=== PATIENT | male | born 1940 | race Caucasian/White ===

== ENCOUNTER 2018-01-30 16:16 | Outpatient (CLI) | payer MEDICARE ==
--- NOTE | 2018-01-30 17:23 | RAD ---
CHEST TWO VIEWS: 01/30/18 COMPARISON: 08/10/17. HISTORY: Congestive heart failure. FINDINGS: Persistent cardiomegaly. Pulmonary vessels are normal. Small bilateral effusions. Hyperinflation. Chr onic changes without consolidation or mass. No pneumothorax or osseous abnormalities. IMPRESSION: 1. Cardiomegaly. 2. Small bilateral pleural effusions. POS: [facility]
== END 2018-01-30 16:17 | disposition home or self-care (01) ==
LOC: RAD-FRANK 16:16
PROVIDERS: ATTEND Nurse Practitioner Family
DX: I50.9 Heart failure, unspecified (principal); I51.7 Cardiomegaly; J90 Pleural effusion, not elsewhere classified
CPT/HCPCS: 71046

== ENCOUNTER 2019-05-29 14:45 | Outpatient (CLI) | payer MEDICARE ==
--- NOTE | 2019-05-29 15:35 | RAD ---
2 VIEW CHEST: Date: 05/29/19 HISTORY: CHF. COMPARISON: 01/30/18. FINDINGS: Mild cardiomegaly. Lung crawford appear clear. No infiltrate or vascular congestion. Osseous structures unremarkable. IMPRESSION: Cardiomegaly is stable. No acute lung process. POS: [facility]
== END 2019-05-29 14:46 | disposition home or self-care (01) ==
LOC: RAD-FRANK 14:45
PROVIDERS: ATTEND Nurse Practitioner Family
DX: I50.9 Heart failure, unspecified (principal); I51.7 Cardiomegaly
CPT/HCPCS: 71046

== ENCOUNTER 2020-05-08 00:52 | Emergency (ER) | payer MEDICARE ==
[2020-05-08] MEDS ORDERED: Meclizine HCl 25 MG TAB ONE (01:33)
[2020-05-08 01:54] LABS: Mean Corpuscular HGB CONC 32.8 g/dL (32.0-36.0); Mean Corpuscular Hemoglobin 31.7 pg (27.0-31.0); Mean Corpuscular Volume 96.6 fL (78.0-98.0); Mean Platelet Volume 7.9 fL (7.4-10.4); Platelet Count 172 thou/uL (130-400); RBC Distribution Width 13.1 % (11.5-14.5); Red Blood Cell (RBC) Count 4.12 mill/uL (4.70-6.10)
[2020-05-08 02:14] LABS: ALT (SGPT) 21 U/L (8-55); AST (SGOT) 23 U/L (5-34); Albumin 3.5 g/dL (3.4-4.8); Alkaline Phosphatase 69 U/L (40-110); Anion Gap 10 mmol/L (10-20); BUN (Urea Nitrogen) 31 mg/dL (8.4-25.7); Bilirubin, Total 0.9 mg/dL (0.2-1.2); Calc. Creatinine Clearance 0 mL/min (70-130); Calcium 8.5 mg/dL (7.8-10.44); Carbon Dioxide 25 mmol/L (23-31); Chloride 105 mmol/L (98-107); Estimated GFR-MDRD 66; Globulin 2.6 g/dL (2.4-3.5); Glucose 138 mg/dL (83-110); Potassium 4.6 mmol/L (3.5-5.1); Protein, Total 6.1 g/dL (5.8-8.1); Sodium 135 mmol/L (136-145)
[2020-05-08 02:18] LABS: Hypochromia SLIGHT = 6-15 cells (100X) (0-5/hpf); Lymphocytes 8 % (21-51); MDiff Complete? YES; Monocytes 7 % (0-10); Neutrophil 85 % (42-75); Platelet Morphology Comment Appears Adequate
[2020-05-08 02:50] LABS: Bilirubin Negative (Negative); Blood, Urine Negative (Negative); Clarity Clear (Clear); Glucose, Urine (Dipstick) Normal (Negative); Leukocyte Negative Leu/uL (Negative); Nitrite Negative (Negative); Protein, Urine (Dipstick) 10 mg/dL (Neg-Trace)
--- NOTE | 2020-05-08 07:59 | RAD ---
SINGLE VIEW OF THE CHEST: COMPARISON: 02/11/2019. HISTORY: Dizziness and fatigue. Dyspnea. FINDINGS: A single view of the chest shows an enlarged but stable cardiomediastinal silhouette. There is no ev idence of consolidation, mass, or pleural effusion. IMPRESSION: Stable cardiomegaly. POS: [facility]
--- NOTE | 2020-05-08 08:23 | CT ---
PRELIMINARY REPORT/[facility]/EMERGENCY AFTER HOURS PROCEDURE EXAM: CT Head Without Intravenous Contrast. CLINICAL HISTORY: Patient presents with approximately 1 month of generalized fatigue and dizziness TECHNIQUE: Axial computed tomography images of the head/brain without intravenous contrast. COMPARISON: None provided. FINDINGS: BRAIN: No acute intraparenchymal hemorrhage. No mass lesion. No CT evidence for acute territorial inf arct. No midline shift or extra-axial collection. There is a mild age appropriate brain atrophy with mild periventricular white matter disease. 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 VENTRICLES: No hydrocephalus. ORBITS: The orbits are unremarkable. SINUSES AND MASTOIDS: The paranasal sinuses and mastoid air cells are clear. SOFT TISSUES: No significant facial or scalp soft tissue swelling evident. No radiopaque foreign body is seen. BONES: No acute skull fracture. IMPRESSION: No acute intracranial abnormality. ELECTRONICALLY SIGNED BY: Andrae Castillo MD May 08, 2020 2:03:50 AM CDT FINAL REPORT EMERGENT AFTER HOURS CT OF THE BRAIN WITHOUT CONTRAST: FINDINGS/IMPRESSION: I agree with the findings and impression given in the preliminary report per [facility] physici an. No evidence of acute intracranial abnormality. POS: [facility]
[2020-05-09 21:27] VITALS: BP 109/70; TEMP 98.5
== END 2020-05-08 04:00 | disposition home or self-care (01) ==
LOC: ERS 00:52 → 2SW 05-09 17:05 → UNDOADMIN 05-09 17:05
DX: R42 Dizziness and giddiness (principal); R53.83 Other fatigue; I25.10 Atherosclerotic heart disease of native coronary artery without angina pectoris; I50.9 Heart failure, unspecified
CPT/HCPCS: 70450; 71045; 80053; 81003; 83880; 84484; 85025; 93005

== ENCOUNTER 2020-05-09 06:17 | Inpatient (IN) | payer MEDICARE, OTHER ==
[2020-05-09] MEDS ORDERED: Digoxin 0.5 MG/2 ML AMP ONE (06:26)
[2020-05-09] MEDS ORDERED: Norepinephrine 8 MG/0.9% NS 250 ML ONE (06:38)
[2020-05-09 06:43] LABS: #Lymphocytes 0.8 thou/uL (1.20-3.40); #Monocytes 0.9 thou/uL (0.11-0.59); #Neutrophils 5.4 thou/uL (1.40-6.50); %Basophils 0.5 % (0.0-1.0); %Eosinophils 0.6 % (0.0-10.0); %Lymphocytes 11.7 % (21.0-51.0); %Monocytes 12.6 % (0.0-10.0); %Neutrophils 74.7 % (42.0-75.0); Hemoglobin 12.1 g/dL (14.0-18.0); Mean Corpuscular HGB CONC 31.5 g/dL (32.0-36.0); Mean Corpuscular Hemoglobin 30.8 pg (27.0-31.0); Mean Corpuscular Volume 97.7 fL (78.0-98.0); Mean Platelet Volume 8.2 fL (7.4-10.4); Platelet Count 180 thou/uL (130-400); RBC Distribution Width 13.2 % (11.5-14.5); Red Blood Cell (RBC) Count 3.94 mill/uL (4.70-6.10); White Blood Cell (WBC) Count 7.2 thou/uL (4.8-10.8)
[2020-05-09] MEDS ORDERED: Norepinephrine 8 MG/0.9% NS 250 ML IVPB SCH (06:45)
[2020-05-09 07:02] LABS: ALT (SGPT) 108 U/L (8-55); AST (SGOT) 165 U/L (5-34); Albumin 3.5 g/dL (3.4-4.8); Alkaline Phosphatase 134 U/L (40-110); Anion Gap 16 mmol/L (10-20); BUN (Urea Nitrogen) 36 mg/dL (8.4-25.7); Bilirubin, Total 1.4 mg/dL (0.2-1.2); Calc. Creatinine Clearance 0 mL/min (70-130); Calcium 8.2 mg/dL (7.8-10.44); Carbon Dioxide 20 mmol/L (23-31); Chloride 106 mmol/L (98-107); Estimated GFR-MDRD 43; Globulin 2.4 g/dL (2.4-3.5); Glucose 115 mg/dL (83-110); Potassium 5.7 mmol/L (3.5-5.1); Protein, Total 5.9 g/dL (5.8-8.1); Sodium 136 mmol/L (136-145)
[2020-05-09] MEDS ORDERED: Midazolam HCl 2 mg/2 ml Vial ONE (07:28)
[2020-05-09] MEDS ORDERED: Fentanyl 100 MCG/2 ML VIAL ONE (07:28)
[2020-05-09] MEDS ORDERED: Enoxaparin Sodium 80 MG/0.8 ML SYRINGE ONE (07:34)
[2020-05-09] MEDS ORDERED: Aspirin Chewable 81 MG TAB ONE (07:34)
[2020-05-09] MEDS ORDERED: Ondansetron PF 4 MG/2 ML Vial ONE (07:42)
[2020-05-09] MEDS ORDERED: Naloxone HCl 2 mg/2 ml Syringe ONE (07:46)
[2020-05-09] MEDS ORDERED: Naloxone HCl 0.4 mg/ml Vial ONE (07:46)
[2020-05-09 07:57] LABS: INR-International Normal Ratio 1.3; PTT 36.3 sec (22.9-36.1); Prothrombin Time 15.8 sec (12.0-14.7)
--- NOTE | 2020-05-09 07:58 | RAD ---
Exam: Chest one view HISTORY:Dyspnea. Comparison: 05/08/2020 FINDINGS: Cardiac silhouette:Cardiomegaly. Aorta: Atherosclerosis of the aorta Pulmonary vessels: Normal Costophrenic angles: Clear LUNGS: Parenchymal changes are felt to be chronic. No masses or consolidation. Pneumothorax: None Osseous abnormalities: None IMPRESSION: 1. Cardiomegaly, without evidence of congestive heart failure. 2. Atherosclerosis.
[2020-05-09] MEDS ORDERED: Vancomycin 1 GM/200 ML BAG ONE (08:27)
[2020-05-09] MEDS ORDERED: Cefepime 2 GM VIAL ONE (08:27)
[2020-05-09] MEDS ORDERED: Dextrose 50% Abboject 50 ML SYRINGE SLOW IVP ONE (08:37)
[2020-05-09] MEDS ORDERED: Insulin Regular 300 UNITS/3 ML VIAL IVP SCH (08:45)
[2020-05-09 08:59] LABS: Bilirubin Negative (Negative); Blood, Urine 2+ (Negative); Clarity Turbid (Clear); Glucose, Urine (Dipstick) Normal (Negative); Leukocyte 25 Leu/uL (Negative); Nitrite Negative (Negative); Protein, Urine (Dipstick) 50 mg/dL (Neg-Trace); RBC/HPF Greater than 50 HPF (0-3); Squamous Epithelial 0-3 HPF (0-3); Urobilinogen Normal mg/dL (Less than 2)
--- NOTE | 2020-05-09 09:11 | CT ---
BRAIN CT WITHOUT IV CONTRAST: HISTORY: Dizziness. COMPARISON: 05/08/2020. FINDINGS: No mass or midline shift. No intra- or extraaxial hemorrhage. Sinuses and mastoids are clear of acu te process. IMPRESSION: Stable exam. Unchanged from exam, yesterday, 05/08/2020. POS: [facility]
[2020-05-09 09:14] LABS: Bacteria/HPF None Seen HPF (None Seen); Renal Epithelial 0-3 HPF (None Seen); Transitional Epithelial 0-3 HPF (None Seen); Yeast-Budding None Seen HPF (None Seen)
[2020-05-09 10:02] LABS: Troponin I 0.752 ng/mL (< 0.028)
--- NOTE | 2020-05-09 12:13 | HP ---
PRIMARY CARE PROVIDER: Bethany Gupta. CHIEF COMPLAINT: Lightheadedness. HISTORY OF PRESENT ILLNESS: Mr. Handy is a pleasant 79-year-old gentleman, who was seen at [facility] on May 09, 2020. The patient was seen in the emergency room yesterday for lightheadedness. He was insistent that he was fine and there was nothing wrong. He received meclizine and was discharged home. Today morning, he was found to be hypotensive and tachycardic with rapid atrial fibrillation. He received fluids with improvement of blood pressure and heart rate. Please note, the patient is currently lethargic, unable to provide any history. History was obtained from discussion with emergency room physician and review of medical records. I tried contacting his , but the phone number was not working. In the emergency room today, he was found to be in atrial fibrillation with rapid ventricular response. He was initially treated with norepinephrine because of hypotension. He also received digoxin. He continued to be hypotensive. Following discussion with car chaser on-call, emergency room physician electrically cardioverted the patient with conversion to sinus rhythm. He received fentanyl for the cardioversion and needed Narcan to reverse fentanyl. He was lethargic following cardioversion, and therefore, CT scan of the brain has been ordered to rule out stroke. REVIEW OF SYSTEMS: Could not be completed secondary to the patient's lethargic status. PAST MEDICAL HISTORY: Congestive heart failure, coronary artery disease, and left ventricular ejection fraction 15% to 20% in December 2016. PAST SURGICAL HISTORY: None. SOCIAL HISTORY: No history of tobacco use, alcohol use or recreational drug use. FAMILY HISTORY: Could not obtain. ALLERGIES: NO KNOWN DRUG ALLERGIES. CURRENT MEDICATIONS: 1. Meclizine 50 mg every 8 hours as needed. 2. Lasix. 3. Aspirin. 4. Atorvastatin 40 mg daily. 5. Coreg 12.5 mg 2 times a day. 6. Furosemide 40 mg daily. 7. Lisinopril 5 mg daily. PHYSICAL EXAMINATION: GENERAL: On examination, Mr. Handy is lethargic. VITAL SIGNS: Blood pressure 107/72, pulse 87, respiratory rate 20, and oxygen saturation 100% on room air. He is afebrile. EYES: No scleral icterus, no conjunctival pallor. ENT: Moist mucosal membranes. No oropharyngeal erythema or exudates. NECK: Supple, nontender, trachea is midline. RESPIRATORY: Accessory muscles of breathing are not active. Chest wall movements are symmetric bilaterally. He has a few bibasilar crackles. CARDIOVASCULAR: S1 and S2 are heard, regular. Peripheral pulses palpable. ABDOMEN: Soft, nontender, bowel sounds are heard. NEUROLOGIC: Full neurologic examination was not possible secondary to the patient's noncooperation. No facial droop. Pupils equal and reactive to light. Deep tendon reflexes 2+, plantars downgoing bilaterally. MUSCULOSKELETAL: The patient is moving all 4 extremities. SKIN: No rashes. PSYCHIATRIC: Unable to assess mood, affect, or orientation to person, place or time. LABORATORY DATA: Mr. Handy's labs and investigations were reviewed. I reviewed his electrocardiogram, which at 0622 hours today shows atrial fibrillation with rapid ventricular response. Post cardioversion electrocardiogram done at 0753 hours shows normal sinus rhythm, left bundle-branch block. Chest x-ray does not show any pulmonary infiltrates. He has cardiomegaly by my review. Noncontrast CT scan of the brain did not show any acute intracranial processes. He has normal white count, normocytic anemia with hemoglobin of 12.1, normal platelet count, INR 1.3, normal sodium, elevated potassium of 5.7, elevated blood urea nitrogen of 36, elevated creatinine of 1.56, creatinine was 1.08 yesterday, elevated total bilirubin of 1.4, elevated AST of 165, elevated ALT of 108, elevated alkaline phosphatase of 134, elevated troponin I of 0.428, and elevated BNP of 1598. Urinalysis is negative for nitrite and positive for leukocyte esterase. ASSESSMENT AND PLAN: Mr. Handy is a pleasant 79-year-old gentleman, who was seen at [facility] on May 09, 2020. His problem list includes: 1. Atrial fibrillation with rapid ventricular response: Mr. Handy presented with atrial fibrillation with rapid ventricular response. He was hemodynamically stable and was electrically cardioverted. He will be admitted to the hospital for further management. 2. Elevated troponin: Could be secondary to atrial fibrillation with rapid ventricular response. We will trend troponins. We will monitor on telemetry. Cardiology Service has been consulted by emergency room physician, we will follow input. 3. Hyperkalemia: We will provide insulin followed by D50, we will recheck potassium level. 4. Abnormal LFTs: Most likely secondary to hepatic congestion from congestive heart failure, we will trend LFTs. We will check abdominal ultrasound if LFTs do not improve. 5. The patient has been started on cefepime and vancomycin because of concern over sepsis as the source of hypotension. I will continue these for now and discontinue depending on the cultures. Many thanks for allowing me to participate in your patient's care. Please feel free to contact me with any questions or concerns. LEVEL OF RISK: High. LEVEL OF COMPLEXITY: High. Job ID: [id number]
[2020-05-09 15:13] LABS: Anion Gap 16 mmol/L (10-20); BUN (Urea Nitrogen) 41 mg/dL (8.4-25.7); Calc. Creatinine Clearance 0 mL/min (70-130); Calcium 7.7 mg/dL (7.8-10.44); Carbon Dioxide 14 mmol/L (23-31); Chloride 109 mmol/L (98-107); Estimated GFR-MDRD 41; Glucose 127 mg/dL (83-110); Potassium 5.6 mmol/L (3.5-5.1); Sodium 133 mmol/L (136-145)
[2020-05-09 15:18] LABS: Troponin I 5.989 ng/mL (< 0.028)
[2020-05-09] MEDS: Cefepime 2 GM in Sodium Chloride 0.9% 100 ML IVPB SCH (20:58)
[2020-05-10 05:17] VITALS: BMI 22.4
[2020-05-10 06:08] LABS: #Eosinphils 0.1 thou/uL (0.0-0.7); #Lymphocytes 1.1 thou/uL (1.20-3.40); #Monocytes 0.7 thou/uL (0.11-0.59); #Neutrophils 3.8 thou/uL (1.40-6.50); %Basophils 0.6 % (0.0-1.0); %Eosinophils 2.2 % (0.0-10.0); %Lymphocytes 18.3 % (21.0-51.0); %Monocytes 12.6 % (0.0-10.0); %Neutrophils 66.3 % (42.0-75.0); Hemoglobin 11.9 g/dL (14.0-18.0); Mean Corpuscular Hemoglobin 30.2 pg (27.0-31.0); Mean Corpuscular Volume 97.5 fL (78.0-98.0); Platelet Count 187 thou/uL (130-400); RBC Distribution Width 13.3 % (11.5-14.5); Red Blood Cell (RBC) Count 3.94 mill/uL (4.70-6.10); White Blood Cell (WBC) Count 5.7 thou/uL (4.8-10.8)
[2020-05-10 06:34] LABS: ALT (SGPT) 89 U/L (8-55); AST (SGOT) 106 U/L (5-34); Alkaline Phosphatase 101 U/L (40-110); Anion Gap 13 mmol/L (10-20); BUN (Urea Nitrogen) 44 mg/dL (8.4-25.7); Calc. Creatinine Clearance 47 mL/min (70-130); Calcium 7.6 mg/dL (7.8-10.44); Carbon Dioxide 16 mmol/L (23-31); Chloride 110 mmol/L (98-107); Estimated GFR-MDRD 52; Glucose 99 mg/dL (83-110); Potassium 4.9 mmol/L (3.5-5.1); Sodium 134 mmol/L (136-145)
[2020-05-10 06:46] LABS: Critical Call Chem Troponin I RESULT DECREASING
[2020-05-10] MEDS: Enoxaparin Sodium 40 MG/0.4 ML SYRINGE SC SCH (08:14)
[2020-05-10] MEDS: Cefepime 2 GM in Sodium Chloride 0.9% 100 ML IVPB SCH ×2 (08:14→21:26)
[2020-05-10] MEDS: Vancomycin HCl 1.25 GM in Sodium Chloride 0.9% 250 ML 250 ML IVPB SCH (08:45)
[2020-05-10] MEDS ORDERED: Prevnar 13-Val Conj/PF 0.5 ML SYRINGE IM ONE (09:00)
[2020-05-10] MEDS ORDERED: Nitroglycerin 0.4 MG TAB (25 Tab Bottle) SL PRN (10:41)
[2020-05-10 12:24] LABS: SARS-CoV-2 MS2 Positive; SARS-CoV-2 N Gene Negative; SARS-CoV-2 S Gene Negative; SARS-CoV-2 orf1ab Negative
[2020-05-10] MEDS: Carvedilol 6.25 MG TAB PO SCH (17:09)
--- NOTE | 2020-05-10 18:17 | PDOC.HOSPP ---
- Subjective Encounter Date: 05/10/20 Encounter Time: 18:16 Subjective: Pt seen for followup re: afib with RVR. Feels better now, denies chest pain. Denies cough or fevers. - Objective Vital Signs & Weight: Vital Signs (12 hours) Temp Pulse Resp BP Pulse Ox 05/10/20 17:56 97.4 F L 83 16 107/66 95 05/10/20 15:25 97.8 F 92 18 108/65 100 05/10/20 12:10 97.8 F 90 16 107/66 98 05/10/20 08:50 98.1 F 79 16 105/65 100 Weight Weight 159 lb 14.4 oz I&O: 05/09/20 05/10/20 05/11/20 06:59 06:59 06:59 Output Total 400 Balance -400 Result Diagrams: 05/10/20 06:02 05/10/20 06:02 Additional Labs: Labs and MARs reviewed by me EKG Reviewed by me: Yes (Tele: NSR) Hospitalist ROS - Review of Systems Respiratory: denies: cough, shortness of breath, SOB with excertion, pleuritic pain, wheezing Cardiovascular: denies: chest pain, palpitations, orthopnea, paroxysmal noc. dyspnea, edema, light headedness Gastrointestinal: denies: nausea, vomiting, abdominal pain, diarrhea, constipation, melena, hematochezia - Medication Medications: Active Medications Generic Name Dose Route Start Last Admin Trade Name Freq PRN Reason Stop Dose Admin Carvedilol 12.5 mg 05/10/20 17:00 05/10/20 17:09 Coreg PO 12.5 mg BID- MAUREEN Administration Enoxaparin Sodium 40 mg 05/10/20 09:00 05/10/20 08:14 Lovenox SC 40 mg 0900 MAUREEN Administration Vancomycin HCl 1.25 gm/ Sodium 250 mls @ 166.667 mls/hr 05/10/20 09:00 08:45 Chloride IVPB 250 mls 0900 MAUREEN Administration Cefepime HCl 2 gm/ Sodium 100 mls @ 200 mls/hr 05/09/20 20:00 05/10/20 08:14 Chloride IVPB 100 mls 0800,2000 MAUREEN Administration Sodium Chloride 10 ml 05/09/20 09:00 06/14/20 08:15 Flush - Normal Saline IVF 10 ml Q12HR MAUREEN Administration - Exam General Appearance: awake alert Eye: anicteric sclera ENT: moist mucosa Neck: supple, symmetric Heart: RRR, no rubs Respiratory: CTAB, no rales Gastrointestinal: soft, non-tender Skin: no rashes Musculoskeletal: no muscle wasting Psychiatric: normal affect, normal behavior Hosp A/P (1) Atrial fibrillation with RVR Code(s): I48.91 - UNSPECIFIED ATRIAL FIBRILLATION Status: Acute (2) Elevated troponin Code(s): R79.89 - OTHER SPECIFIED ABNORMAL FINDINGS OF BLOOD CHEMISTRY Status : Acute (3) Sepsis Code(s): A41.9 - SEPSIS, UNSPECIFIED ORGANISM Status: Acute (4) Chronic systolic CHF (congestive heart failure) Code(s): I50.22 - CHRONIC SYSTOLIC (CONGESTIVE) HEART FAILURE Status: Chronic - Plan s/p electrical cardioversion. Elevated troponin could be secondary to electrical cardioversion and afib with RVR. Pt denies chest pain at this time. 2D echo/cardiology consults pending. COVID-19 ruled out. Blood and urine cultures negative so far. Pt on empiric antibiotics (IV cefepime/vancomycin).
[2020-05-10] MEDS: Atorvastatin Calcium 40 MG TAB PO SCH (20:10)
[2020-05-11 04:22] LABS: ALT (SGPT) 81 U/L (8-55); AST (SGOT) 81 U/L (5-34); Albumin 2.8 g/dL (3.4-4.8); Alkaline Phosphatase 85 U/L (40-110); Anion Gap 13 mmol/L (10-20); BUN (Urea Nitrogen) 40 mg/dL (8.4-25.7); Bilirubin, Total 0.9 mg/dL (0.2-1.2); Calc. Creatinine Clearance 56 mL/min (70-130); Calcium 7.8 mg/dL (7.8-10.44); Carbon Dioxide 17 mmol/L (23-31); Chloride 109 mmol/L (98-107); Estimated GFR-MDRD 63; Globulin 2.3 g/dL (2.4-3.5); Glucose 91 mg/dL (83-110); Potassium 4.5 mmol/L (3.5-5.1); Protein, Total 5.1 g/dL (5.8-8.1); Sodium 134 mmol/L (136-145)
[2020-05-11 08:46] LABS: Vancomycin, Trough 8.6 ug/mL
[2020-05-11] MEDS: Carvedilol 6.25 MG TAB PO SCH ×2 (09:04→17:20)
[2020-05-11] MEDS: Lisinopril 5 MG TAB PO SCH (09:05)
[2020-05-11] MEDS: Furosemide 40 MG TAB PO SCH (09:06)
[2020-05-11] MEDS: Aspirin Chewable 81 MG TAB PO SCH (09:06)
[2020-05-11] MEDS: Enoxaparin Sodium 40 MG/0.4 ML SYRINGE SC SCH (09:07)
[2020-05-11] MEDS: Cefepime 2 GM in Sodium Chloride 0.9% 100 ML IVPB SCH ×2 (09:08→20:56)
[2020-05-11] MEDS: Vancomycin HCl 1.25 GM in Sodium Chloride 0.9% 250 ML 250 ML IVPB SCH (09:57)
[2020-05-11] MEDS ORDERED: Amiodarone 200 MG TAB PO SCH (11:45)
--- NOTE | 2020-05-11 17:30 | CON ---
DATE OF CONSULTATION: HISTORY OF PRESENT ILLNESS: Solitario Handy is a 79-year-old white male who was evaluated by Dr. Triana in December 2016. He had worsening shortness of breath and went to the emergency room in [place], but he would not stay and went home. He came back the next day with increased difficulty breathing. He was given furosemide, had improvement in his symptoms. Echocardiogram revealed an ejection fraction of 15 % to 20% with moderate to severe mitral regurgitation and very dilated left ventricle. He also had left bundle branch block. He underwent cardiac catheterization, which revealed ejection fraction of 20% with global hypokinesis. There was a 10% left main, 10% mid LAD, 60% ostial circumflex, and 20% distal right coronary artery stenosis. It was felt that he had a nonischemic cardiomyopathy. He was placed on carvedilol, lisinopril, and furosemide. He never did return for followup. It was the feeling that during that admission that he ultimately would probably need a biventricular ICD. He presented to the ER on May 08, 2020, complaining of lightheadedness, and he was urged to stay, but he wished to leave and was placed on meclizine. He then again called EMS, and they called for helicopter transport. He was complaining of lightheadedness and weakness and mild shortness of breath, but denied any chest discomfort. The patient states that his pressure was in the 50s when they arrived and he was in atrial fibrillation with fast ventricular response. He denied any chest discomfort during any of this. In the emergency room, he was given digoxin 0.25 IV. However, he continued to remain hypotensive with blood pressure as low as 81/67. Norepinephrine was started for his hypotension, and he was given baby aspirin. He continued to have fast ventricular response. The decision was made to have him undergo cardioversion. He was given fentanyl 100 mcg and midazolam 2 mg and then underwent electrical cardioversion. From review of the ER records, I am not certain how much energy was used. He then converted to sinus rhythm, but was very slow to awaken, and he was given Narcan. This followed by head CT because he continued to remain very drowsy, and the head CT was unremarkable. Today, he is sitting in the chair, alert, oriented, and states that he does have problems with exertional dyspnea if he tries to do something strenuous. He denies any PND. He does have some swelling of his left ankle after he dropped a frozen pig on it. He continues to deny ever having any chest discomfort. PAST MEDICAL HISTORY: Nonischemic cardiomyopathy, mild coronary artery disease , and hypercholesterolemia. PAST SURGICAL HISTORY: Tonsillectomy. MEDICATIONS: 1. Meclizine p.r.n. 2. Aspirin 81 daily. 3. Atorvastatin 40 at bedtime. 4. Carvedilol 12.5 mg b.i.d. 5. Furosemide 40 q.a.m. 6. Lisinopril 5 mg daily. 7. Nitroglycerin 0.4 mg p.r.n. ALLERGIES: NONE. FAMILY HISTORY: Brother had a coronary stent placed. SOCIAL HISTORY: He states he never smoked nor drank. 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 REVIEW OF SYSTEMS: A 10-point review of systems was unremarkable. PHYSICAL EXAMINATION: VITAL SIGNS: Blood pressure 119/73, pulse of 73, sinus rhythm on the monitor. HEENT: PERRL. NECK: Supple. CHEST: Clear. CARDIAC: S1 and S2 normal without any S3, S4, or murmurs. Carotid upstrokes normal without bruits. ABDOMEN: Normal bowel sounds without tenderness or organomegaly. EXTREMITIES: Revealed 2+ pretibial edema on the left. No edema on the right. NEUROLOGIC: Grossly intact. SKIN: Warm and dry. LABORATORY DATA: EKG on admission reveals atrial fibrillation with fast ventricular response of 143 per minute with left bundle branch block. His left bundle branch block is old. Troponin I is up to 5.989. Sodium 134, potassium 4.5, chloride 109, carbon dioxide 17, BUN 40, and creatinine 1.12. AST 81 and ALT 81. BNP 2144 and 1598.1. Hemoglobin 11.9, hematocrit 38.4, white count 5700, platelets 187,000. COVID-19 swab is negative. Echocardiogram revealed the left ventricle is severely increased in size, severe left ventricular dysfunction with ejection fraction of 10% to 15%, evidence for diastolic dysfunction, left atrial enlargement, severe mitral regurgitation, severe tricuspid regurgitation, trivial aortic insufficiency. IMPRESSION: 1. Acute on chronic systolic and diastolic heart failure with ejection fraction of 10% to 15%. 2. Presenting with atrial fibrillation with fast ventricular response. He was hemodynamically unstable with hypotension and underwent electrical cardioversion in the emergency room. 3. Episode of nonsustained ventricular tachycardia on the monitor. 4. Left bundle branch block. 5. Mild coronary artery disease on catheterization 3 years ago. 6. Hypertension. 7. Hypercholesterolemia. 8. Positive family history. 9. NSTEMI, probably type 2 from atrial fibrillation and electrical cardioversion. PLAN: The patient will be loaded with amiodarone for suppression of atrial fibrillation going forward. He also will need to be on anticoagulation for stroke prophylaxis. His CHADS-VASc score is greater than 2. Also, Electrophysiology will be consulted for biventricular ICD, which is what he really needs, especially with finding of nonsustained ventricular tachycardia since he has been here. We will follow the patient with you. Job ID: [id number] MTDD
--- NOTE | 2020-05-11 18:27 | PDOC.HOSPP ---
- Subjective Encounter Date: 05/11/20 Encounter Time: 07:40 Subjective: Pt seen for followup re: NSVT. Feels better today. - Objective Vital Signs & Weight: Vital Signs (12 hours) Temp Pulse Resp BP BP BP Pulse Ox 05/11/20 17:20 105/65 05/11/20 12:00 97.3 F L 67 18 105/60 05/11/20 09:05 76 119/73 05/11/20 09:04 119/73 05/11/20 08:00 98 05/11/20 07:45 96.3 F L 76 18 119/73 98 Weight Admit Weight 158 lb 14.4 oz Weight 160 lb 3.2 oz I&O: 05/10/20 05/11/20 05/12/20 06:59 06:59 06:59 Intake Total 700 Output Total 400 Balance -400 700 Result Diagrams: 05/10/20 06:02 05/11/20 03:24 Additional Labs: Labs and MARs reviewed by me EKG Reviewed by me: Yes (Tele: NSVT) Hospitalist ROS - Review of Systems Respiratory: reports: SOB with excertion. denies: cough, shortness of breath, pleuritic pain, wheezing Cardiovascular: denies: chest pain, palpitations, orthopnea, paroxysmal noc. dyspnea, edema, light headedness Gastrointestinal: denies: nausea, vomiting, abdominal pain, diarrhea, constipation, melena, hematochezia - Medication Medications: Active Medications Generic Name Dose Route Start Last Admin Trade Name Freq PRN Reason Stop Dose Admin Aspirin 81 mg 05/11/20 09:00 05/11/20 09:06 Aspirin Chewable PO 81 mg DAILY MAUREEN Administration Atorvastatin Calcium 40 mg 05/10/20 21:00 05/10/20 20:10 Lipitor PO 40 mg HS MAUREEN Administration Carvedilol 12.5 mg 05/10/20 17:00 05/11/20 17:20 Coreg PO 12.5 mg BID-WM MAUREEN Administration Enoxaparin Sodium 40 mg 05/10/20 09:00 05/11/20 09:07 Lovenox SC 40 mg 0900 MAUREEN Administration Furosemide 40 mg 05/11/20 09:00 05/11/20 09:06 Lasix PO 40 mg DAILY MAUREEN Administration Cefepime HCl 2 gm/ Sodium 100 mls @ 200 mls/hr 05/09/20 20:00 05/11/20 09:08 Chloride IVPB 100 mls 799,1999 MAUREEN Administration Lisinopril 5 mg 05/11/20 09:00 05/11/20 09:05 Zestril PO 5 mg DAILY MAUREEN Administration Sodium Chloride 10 ml 05/09/20 09:00 05/11/20 09:10 Flush - Normal Saline IVF 10 ml Q12HR MAUREEN Administration - Exam General Appearance: awake alert Eye: anicteric sclera ENT: normocephalic atraumatic Neck: supple, no thyromegaly Heart: RRR Respiratory: normal chest expansion, rales Gastrointestinal: soft, non-tender Extremities: 2+ LE edema Extremities - other findings: Worse on left side Musculoskeletal: no muscle wasting Psychiatric: normal affect, normal behavior Hosp A/P (1) NSVT (nonsustained ventricular tachycardia) Code(s): I47.2 - VENTRICULAR TACHYCARDIA Status: Acute (2) Elevated troponin Code(s): R79.89 - OTHER SPECIFIED ABNORMAL FINDINGS OF BLOOD CHEMISTRY Status : Acute (3) Chronic systolic CHF (congestive heart failure) Code(s): I50.22 - CHRONIC SYSTOLIC (CONGESTIVE) HEART FAILURE Status: Chronic (4) Atrial fibrillation with RVR Code(s): I48.91 - UNSPECIFIED ATRIAL FIBRILLATION Status: Resolved (5) Sepsis Code(s): A41.9 - SEPSIS, UNSPECIFIED ORGANISM Status: Resolved - Plan Consult EP for NSVT/a. fib. s/p electrical cardioversion for a fib, now in NSR. Troponin trending down. COVID-19 ruled out. Blood and urine cultures negative so far, follow cultures. Pt on IV cefepime/vancomycin.
--- NOTE | 2020-05-11 19:49 | CON ---
DATE OF CONSULTATION: 05/11/2020 REASON FOR CONSULTATION: Consideration of biventricular ICD. HISTORY OF PRESENT ILLNESS: Mr. Handy is a 79-year-old gentleman, who presented to the emergency room for lightheadedness. He was found to be hypotensive and tachycardic and atrial fibrillation with RVR. He did receive some bolus of IV fluids and digoxin. He continued to be hypotensive and minimally responsive to the digoxin. He was placed on a norepinephrine drip and eventually underwent external cardioversion in the ER to restore sinus rhythm. He has a history of ischemic cardiomyopathy, coronary artery disease, left bundle-branch block, and congestive heart failure. His documentation shows LVEF 15% to 20% in December of 2016. He is not followed with Cardiology regularly since that time. That being said, his home medication list does include guideline directed medication therapy with beta-ann and LUZ MARIA inhibitor. He denies any prior history of atrial fibrillation. Mr. Handy currently feels well. He denies any heart racing, palpitations, chest pain, pressure, syncope, near syncope, stroke, or stroke-like symptoms. REVIEW OF SYSTEMS: A 12-point review of systems is negative except that listed above in the HPI. PAST MEDICAL HISTORY: 1. Ischemic cardiomyopathy, congestive systolic heart failure, LVEF 15% to 20% in December 2016. 2. Coronary artery disease. 3. Left bundle-branch block by a 12-lead EKG in 2016. SOCIAL HISTORY: Denies alcohol, tobacco, or illicit drug use. 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 FAMILY HISTORY: Denies sudden cardiac or early-onset CAD. ALLERGIES: NO KNOWN DRUG ALLERGIES. MEDICATIONS: 1. Furosemide 40 mg daily. 2. Aspirin 81 mg daily. 3. Lisinopril 5 mg daily. 4. Carvedilol 12.5 mg b.i.d. 5. Lipitor 40 mg at bedtime. PHYSICAL EXAMINATION: VITAL SIGNS: Temperature 97.3, pulse 67, blood pressure is 105/60, respirations 18, and oxygen is 98% on room air. GENERAL: The patient is alert and oriented. Speech is clear. Affect is appropriate. He is in no apparent distress at the time of the exam. HEENT: Normocephalic and atraumatic. Sclerae are anicteric. EOMs are intact. Oral mucosa is moist and pink with fair dentition. SKIN: , but no obvious lesions are seen. NECK: Supple without jugular venous distention. HEART: His heart rate is irregularly irregular with crisp S1 and S2. PMI is nondisplaced. LUNGS: Clear to auscultation bilaterally without wheezes, crackles, or rhonchi. Respirations are even and unlabored with good bilateral excursion. ABDOMEN: Soft and nontender without palpable masses. EXTREMITIES: Warm and dry to touch. Well perfused without clubbing or cyanosis. Lower extremities do exhibit 1+ edema extending to the low tibia. DATABASE: Telemetry and EKGs now show sinus rhythm with an underlying left bundle-branch block. QRS is 204 milliseconds. Initial EKG showed atrial flutter with RVR, likely atypical. Ventricular rate 143 beats per minute. P-wave activity is difficult to see with the underlying significant left bundle-branch block in the initial EKG. He has maintained sinus rhythm since being converted in the emergency room. He has had runs of wide-complex tachycardia at 8 beats in duration proceeded by P-wave. There have been multiple instances nonsustained with a slight compensatory pause less than 2 seconds upon termination. LABORATORY DATA: Potassium on 05/09/2020 is 5.6, creatinine 1.65. Troponins were elevated, peaked at 5.989 and trending down. Magnesium was not checked. BNP 1598. DIAGNOSTIC STUDIES: Echocardiogram on 05/11, shows ejection fraction of 10% to 15%. Left atrium is moderately dilated. Severe MR is seen. IMPRESSION: 1. Acute on chronic congestive heart failure with nonischemic cardiomyopathy, NYHA functional class III status. 2. Left bundle-branch block, approximately 200 milliseconds in duration at least since 2016. 3. Wide-complex tachycardia. 4. Severely reduced ejection fraction of approximately 15%, initially diagnosed in February 2017 despite beta-ann and LUZ MARIA inhibitor therapy. 5. Atrial flutter with rapid ventricular response. PLAN AND RECOMMENDATIONS: I had a discussion with Mr. Handy today regarding the potential benefit from a biventricular ICD. First, we discussed the intent of an ICD and his prevention of sudden cardiac . He is in agreement with this, and then, we also discussed the potential benefit from biventricular pacing due to his significant left bundle-branch block and congestive heart failure symptoms. We will begin scheduling a biventricular ICD implant with a [employer] device in the near future. Anticipate this will be placed prior to discharge. We discussed the risks, benefits, and alternatives. The patient voices understanding and fully wishes to proceed with ICD implant. At this point, the persistence and burden of his atrial flutter are unknown. On his echocardiogram, it does note that his left atrium is moderately dilated. Long-term, we can monitor this through his ICD and could also consider initiation of ATP therapies once device has settled in place. We will continue to monitor and we will discuss anticoagulation with him. His CHADS-VASc score is at least 3 with his age and heart failure. Thank you for allowing me to participate in the care of this patient. Job ID: [id number]
[2020-05-11] MEDS: Atorvastatin Calcium 40 MG TAB PO SCH (20:56)
[2020-05-11] MEDS: Amiodarone 200 MG TAB PO SCH (20:56)
[2020-05-11] MEDS: Vancomycin HCl 750 MG in Sodium Chloride 0.9% 250 ML 250 ML IVPB SCH (21:35)
[2020-05-12 04:33] LABS: ALT (SGPT) 75 U/L (8-55); AST (SGOT) 61 U/L (5-34); Albumin 2.9 g/dL (3.4-4.8); Alkaline Phosphatase 79 U/L (40-110); Anion Gap 10 mmol/L (10-20); BUN (Urea Nitrogen) 38 mg/dL (8.4-25.7); Bilirubin, Total 0.8 mg/dL (0.2-1.2); Calc. Creatinine Clearance 53 mL/min (70-130); Calcium 8.1 mg/dL (7.8-10.44); Carbon Dioxide 20 mmol/L (23-31); Cardiac Risk 3.3 (Less than 4.5); Chloride 107 mmol/L (98-107); Cholesterol 93 mg/dl (< 200 Desired); Estimated GFR-MDRD 60; Globulin 2.2 g/dL (2.4-3.5); Glucose 130 mg/dL (83-110); HDL Cholesterol 28 mg/dL (>60 Neg Risk); LDL Cholesterol, Calculated 55 mg/dL; Protein, Total 5.1 g/dL (5.8-8.1); Sodium 133 mmol/L (136-145); Triglycerides 51 mg/dL (Less than 150)
[2020-05-12] MEDS: Carvedilol 6.25 MG TAB PO SCH ×2 (07:24→16:13)
[2020-05-12] MEDS: Cefepime 2 GM in Sodium Chloride 0.9% 100 ML IVPB SCH ×2 (07:25→19:49)
[2020-05-12] MEDS: Lisinopril 5 MG TAB PO SCH (08:06)
[2020-05-12] MEDS: Vancomycin HCl 750 MG in Sodium Chloride 0.9% 250 ML 250 ML IVPB SCH ×2 (08:07→22:35)
[2020-05-12] MEDS: Furosemide 40 MG TAB PO SCH (08:07)
[2020-05-12] MEDS: Amiodarone 200 MG TAB PO SCH ×2 (08:07→19:49)
[2020-05-12] MEDS: Aspirin Chewable 81 MG TAB PO SCH (08:07)
[2020-05-12] MEDS: Enoxaparin Sodium 40 MG/0.4 ML SYRINGE SC SCH (08:07)
--- NOTE | 2020-05-12 10:11 | PDOC.EP ---
- Subjective Date: 05/12/20 Time: 08:00 Interval History: feels well this morning. He is breathing easy. He is not having any heart racing, palpitations, chest pain, syncope, stroke or stroke-like symptoms. He voices no cardiac concerns or complaints this morning - Objective Allergies/Adverse Reactions: Allergies Allergy/AdvReac Type Severity Reaction Status Date / Time No Known Allergies Allergy Verified 05/09/20 19:14 Current Medications Amiodarone HCl (Cordarone) 400 mg PO BID [facility] Last Admin: 05/12/20 08:07 Dose: 400 mg Aspirin (Aspirin Chewable) 81 mg PO DAILY [facility] Last Admin: 05/12/20 08:07 Dose: 81 mg Atorvastatin Calcium (Lipitor) 40 mg PO HS [facility] Last Admin: 05/11/20 20:56 Dose: 40 mg Carvedilol (Coreg) 12.5 mg PO BID-[facility] Last Admin: 05/12/20 07:24 Dose: 12.5 mg Enoxaparin Sodium (Lovenox) 40 mg SC 0900 [facility] Last Admin: 05/12/20 08:07 Dose: 40 mg Furosemide (Lasix) 40 mg PO DAILY [facility] Last Admin: 05/12/20 08:07 Dose: 40 mg Cefepime HCl 2 gm/ Sodium (Chloride) 100 mls @ 200 mls/hr IVPB 0800,2000 [facility] Last Admin: 05/12/20 07:25 Dose: 100 mls Vancomycin HCl 750 mg/ Sodium (Chloride) 250 mls @ 250 mls/hr IVPB 0900,2100 [facility] Last Admin: 05/12/20 08:07 Dose: 250 mls Lisinopril (Zestril) 5 mg PO DAILY [facility] Last Admin: 05/12/20 08:06 Dose: 5 mg Miscellaneous Medication (Pharmacy To Dose) 1 each IVPB PRN PRN PRN Reason: Pharmacy to dose Nitroglycerin (Nitrostat) 0.4 mg SL Q5MIN PRN PRN Reason: Chest Pain Sodium Chloride (Flush - Normal Saline) 10 ml IVF Q12HR [facility] Last Admin: 05/12/20 07:25 Dose: 10 ml Sodium Chloride (Flush - Normal Saline) 10 ml IVF PRN PRN PRN Reason: Saline Flush Vital Signs & Weight: Vital Signs Temp Pulse Resp BP BP Pulse Ox 05/12/20 07:20 97.5 F L 64 16 103/63 96 05/12/20 04:25 97.4 F L 59 L 20 91/51 L 94 L Admit Weight 158 lb 14.4 oz Weight 159 lb 11.2 oz I/O: I/O 05/11/20 05/12/20 05/13/20 06:59 06:59 06:59 Intake Total 700 1590 Output Total 250 Balance 700 1340 - Physical Exam General: alert & oriented x3, appears well, no apparent distress, speech clear, affect appropriate HEENT: mucus membranes moist, normocephaly Neck: supple neck, midline trachea, no JVD/HJR, no masses, no bruit, no lymphadenopathy, no thromegaly Cardiology: regular rate and rhythm, no murmur, lateral displaced Lungs: clear to auscultation, no wheeze, rales, rhonchi Neurology: cranial nerve 2-12 intact, no lateralizing findings - Labs Result Diagrams: 05/10/20 06:02 05/12/20 03:23 - EKG Interpretation EKG Method: Telemetry EKG shows: Sinus rhythm - Assessment/Plan Assessment/Plan: 1. acute on chronic congestive heart failure with nonischemic cardiomyopathy NYHA functional class 3 status 2. left bundle branch block, extensive 200 milliseconds in duration 3. wide complex tachycardia 4. severely reduced ejection fraction of approximately 15% initially diagnosed in 2017 despite GDMT 5. atrial flutter with RVR newly diagnosed, status post external cardioversion in the emergency room scheduled for biventricular ICD implant tomorrow. Will keep him NPO after midnight. Risks benefits and alternatives were discussed. Patient is in full agreement accepting the risks and wishes to move forward. He has remained in sinus rhythm overnight. We will continue to monitor for atrial arrhythmia recurrence. Will need to consider anticoagulation long-term for an elevated chads Vasc score of 3 (age and heart failure). Stopping Lovenox in anticipation of device implant tomorrow
--- NOTE | 2020-05-12 17:45 | EKG ---
Test Reason : Blood Pressure : / mmHG Vent. Rate : 054 BPM Atrial Rate : 054 BPM P-R Int : 170 ms QRS Dur : 218 ms QT Int : 582 ms P-R-T Axes : 077 067 -40 degrees QTc Int : 551 ms Sinus bradycardia Left bundle branch block Abnormal ECG When compared with ECG of 09-MAY-2020 07:53, (Unconfirmed) Vent. rate has decreased BY 38 BPM Questionable change in QRS axis Inverted T waves have replaced nonspecific T wave abnormality in Inferior leads Confirmed by DR. Micheal AUGUSTINE ([id number]) on 05/12/2020 5:45:06 PM Referred By: JOCELINE Confirmed By:DR. Micheal AUGUSTINE
--- NOTE | 2020-05-12 18:39 | PDOC.HOSPP ---
- Subjective Encounter Date: 05/12/20 Encounter Time: 08:00 Subjective: Pt seen for followup re: ventricular tachycardia. Feels well, no complaints. - Objective Vital Signs & Weight: Vital Signs (12 hours) Temp Pulse Resp BP BP Pulse Ox 05/12/20 15:52 98 F 69 16 103/60 99 05/12/20 11:11 97.5 F L 66 16 97/55 L 96 05/12/20 07:20 97.5 F L 64 16 103/63 96 Weight Admit Weight 158 lb 14.4 oz Weight 159 lb 11.2 oz I&O: 05/11/20 05/12/20 05/13/20 06:59 06:59 06:59 Intake Total 700 1590 Output Total 250 Balance 700 1340 Result Diagrams: 05/10/20 06:02 05/12/20 03:23 Additional Labs: Labs and MARs reviewed by me EKG Reviewed by me: Yes (Tele: NSR) Hospitalist ROS - Review of Systems Cardiovascular: denies: chest pain, palpitations, orthopnea, paroxysmal noc. dyspnea, edema, light headedness Gastrointestinal: denies: nausea, vomiting, abdominal pain, diarrhea, constipation, melena, hematochezia - Medication Medications: Active Medications Generic Name Dose Route Start Last Admin Trade Name Freq PRN Reason Stop Dose Admin Amiodarone HCl 400 mg 05/11/20 21:00 05/12/20 08:07 Cordarone PO 400 mg BID [facility] Administration Aspirin 81 mg 05/11/20 09:00 05/12/20 08:07 Aspirin Chewable PO 81 mg DAILY [facility] Administration Atorvastatin Calcium 40 mg 05/10/20 21:00 05/11/20 20:56 Lipitor PO 40 mg HS [facility] Administration Carvedilol 12.5 mg 05/10/20 17:00 05/12/20 16:13 Coreg PO 12.5 mg BID-[facility] Administration Furosemide 40 mg 05/11/20 09:00 05/12/20 08:07 Lasix PO 40 mg DAILY [facility] Administration Cefepime HCl 2 gm/ Sodium 100 mls @ 200 mls/hr 05/09/20 20:00 05/12/20 07:25 Chloride IVPB 100 mls 0800,2000 [facility] Administration Vancomycin HCl 750 mg/ Sodium 250 mls @ 250 mls/hr 05/11/20 21:00 05/12/20 08 :07 Chloride IVPB 250 mls 0900,2100 [facility] Administration Lisinopril 5 mg 05/11/20 09:00 05/12/20 08:06 Zestril PO 5 mg DAILY [facility] Administration Sodium Chloride 10 ml 05/09/20 09:00 05/12/20 07:25 Flush - Normal Saline IVF 10 ml Q12HR [facility] Administration - Exam General Appearance: awake alert Eye: anicteric sclera ENT: normocephalic atraumatic Neck: supple Heart: RRR Respiratory: CTAB Gastrointestinal: soft Psychiatric: normal affect, normal behavior Hosp A/P (1) NSVT (nonsustained ventricular tachycardia) Code(s): I47.2 - VENTRICULAR TACHYCARDIA Status: Acute (2) Elevated troponin Code(s): R79.89 - OTHER SPECIFIED ABNORMAL FINDINGS OF BLOOD CHEMISTRY Status : Acute (3) Chronic systolic CHF (congestive heart failure) Code(s): I50.22 - CHRONIC SYSTOLIC (CONGESTIVE) HEART FAILURE Status: Chronic (4) Atrial fibrillation with RVR Code(s): I48.91 - UNSPECIFIED ATRIAL FIBRILLATION Status: Resolved (5) Sepsis Code(s): A41.9 - SEPSIS, UNSPECIFIED ORGANISM Status: Resolved - Plan Pt awaiting ICD placement. COVID-19 ruled out. Blood and urine cultures negative so far, follow cultures. Continue IV cefepime/vancomycin.
[2020-05-12] MEDS: Atorvastatin Calcium 40 MG TAB PO SCH (19:49)
[2020-05-13 04:35] LABS: #Eosinphils 0.2 thou/uL (0.0-0.7); #Lymphocytes 0.8 thou/uL (1.20-3.40); #Neutrophils 4.6 thou/uL (1.40-6.50); %Basophils 0.5 % (0.0-1.0); %Eosinophils 3.1 % (0.0-10.0); %Lymphocytes 12.2 % (21.0-51.0); %Monocytes 14.9 % (0.0-10.0); %Neutrophils 69.5 % (42.0-75.0); Hemoglobin 11.8 g/dL (14.0-18.0); Mean Corpuscular HGB CONC 32.2 g/dL (32.0-36.0); Mean Corpuscular Hemoglobin 30.8 pg (27.0-31.0); Mean Corpuscular Volume 95.5 fL (78.0-98.0); Mean Platelet Volume 8.2 fL (7.4-10.4); Platelet Count 204 thou/uL (130-400); Red Blood Cell (RBC) Count 3.83 mill/uL (4.70-6.10); White Blood Cell (WBC) Count 6.6 thou/uL (4.8-10.8)
[2020-05-13 04:48] LABS: Anion Gap 13 mmol/L (10-20); BUN (Urea Nitrogen) 34 mg/dL (8.4-25.7); Calc. Creatinine Clearance 51 mL/min (70-130); Calcium 8.4 mg/dL (7.8-10.44); Carbon Dioxide 21 mmol/L (23-31); Chloride 106 mmol/L (98-107); Estimated GFR-MDRD 57; Glucose 101 mg/dL (83-110); Potassium 4.1 mmol/L (3.5-5.1); Sodium 136 mmol/L (136-145)
[2020-05-13] MEDS: Carvedilol 6.25 MG TAB PO SCH ×2 (07:50→17:03)
[2020-05-13] MEDS: Cefepime 2 GM in Sodium Chloride 0.9% 100 ML IVPB SCH (07:52)
[2020-05-13] MEDS: Furosemide 40 MG TAB PO SCH (08:01)
[2020-05-13] MEDS: Lisinopril 5 MG TAB PO SCH (08:01)
[2020-05-13] MEDS: Aspirin Chewable 81 MG TAB PO SCH (08:01)
[2020-05-13] MEDS: Amiodarone 200 MG TAB PO SCH ×2 (08:01→22:09)
--- NOTE | 2020-05-13 09:36 | PRG ---
DATE OF SERVICE: 05/13/2020 SUBJECTIVE: Mr. Handy is resting comfortably. No complaints. Feels well. OBJECTIVE: VITAL SIGNS: Blood pressure 102/59, pulse 66 and it is sinus with a very wide left bundle-branch block on EKG. LUNGS: Clear. CARDIAC: Normal S1, normal S2. ABDOMEN: Soft and nontender. EXTREMITIES: No edema. ASSESSMENT: 1. Nonischemic cardiomyopathy. 2. Coronary artery disease, but not responsible for this severely depressed left ventricular function. 3. Left bundle-branch block with a QRS of 0.20. 4. Non-ST elevation infarction, not demand ischemia. 5. Paroxysmal atrial fibrillation. PLAN: 1. He is set for biventricular pacemaker defibrillator implantation. 2. He is on amiodarone. 3. Once defibrillator was placed, we will begin carvedilol. 4. He is on aspirin and statin. Job ID: [id number]
[2020-05-13 10:16] LABS: Vancomycin, Trough 17.6 ug/mL
[2020-05-13] MEDS: Vancomycin HCl 750 MG in Sodium Chloride 0.9% 250 ML 250 ML IVPB SCH (10:52)
[2020-05-13] MEDS ORDERED: Vancomycin HCl 750 MG in Sodium Chloride 0.9% 250 ML 250 ML IVPB SCH (11:00)
[2020-05-13] MEDS ORDERED: Ondansetron PF 4 MG/2 ML Vial ONE (13:03)
[2020-05-13] MEDS ORDERED: CEFAZOLIN 1 GM VIAL ONE (13:34)
[2020-05-13] MEDS ORDERED: Gentamicin 80 MG/2 ML VIAL ONE (13:34)
[2020-05-13] MEDS ORDERED: Midazolam HCl 2 mg/2 ml Vial ONE (13:43)
[2020-05-13] MEDS ORDERED: Ketamine 50 MG/ML (10ML VIAL) ONE (13:44)
--- NOTE | 2020-05-13 14:01 | PDOC.HOSPP ---
- Subjective Encounter Date: 05/13/20 Encounter Time: 07:20 Subjective: Pt seen for followup re: V. tach. Feels well today, no chest pain. - Objective Vital Signs & Weight: Vital Signs (12 hours) Temp Pulse Resp BP BP Pulse Ox 05/13/20 11:15 97.6 F 64 16 102/59 L 94 L 05/13/20 07:58 97.6 F 66 16 102/59 L 96 05/13/20 07:27 98/57 L 05/13/20 07:01 96 05/13/20 03:10 97.5 F L 66 18 98/61 96 Weight Admit Weight 158 lb 14.4 oz Weight 159 lb I&O: 05/12/20 05/13/20 05/14/20 06:59 06:59 06:59 Intake Total 1590 1810 Output Total 250 Balance 1340 1810 Result Diagrams: 05/13/20 03:44 05/13/20 03:44 Additional Labs: Labs and MARs reviewed by nc Hospitalist ROS - Review of Systems Constitutional: denies: fever, chills, sweats, weakness, malaise Cardiovascular: denies: chest pain, paroxysmal noc. dyspnea, edema, light headedness Gastrointestinal: denies: nausea, vomiting, abdominal pain, diarrhea, constipation, melena, hematochezia - Medication Medications: Active Medications Generic Name Dose Route Start Last Admin Trade Name Freq PRN Reason Stop Dose Admin Amiodarone HCl 400 mg 05/11/20 21:00 05/13/20 08:01 Cordarone PO 400 mg BID [facility] Administration Aspirin 81 mg 05/11/20 09:00 05/13/20 08:01 Aspirin Chewable PO 81 mg DAILY [facility] Administration Atorvastatin Calcium 40 mg 05/10/20 21:00 05/12/20 19:49 Lipitor PO 40 mg HS [facility] Administration Carvedilol 12.5 mg 05/10/20 17:00 05/13/20 07:50 Coreg PO Not Given BID-[facility] Furosemide 40 mg 05/11/20 09:00 05/13/20 08:01 Lasix PO 40 mg DAILY [facility] Administration Cefepime HCl 2 gm/ Sodium 100 mls @ 200 mls/hr 05/09/20 20:00 05/13/20 07:52 Chloride IVPB 100 mls 0800,2000 [facility] Administration Vancomycin HCl 750 mg/ Sodium 250 mls @ 250 mls/hr 05/13/20 11:00 05/13/20 11 :09 Chloride IVPB 250 mls 1100,2300 [facility] Administration Lisinopril 5 mg 05/11/20 09:00 05/13/20 08:01 Zestril PO 5 mg DAILY [facility] Administration Sodium Chloride 10 ml 05/09/20 09:00 05/13/20 08:02 Flush - Normal Saline IVF 10 ml Q12HR [facility] Administration - Exam General Appearance: NAD Eye: anicteric sclera ENT: moist mucosa Neck: supple Heart: RRR, no rubs Respiratory: CTAB Gastrointestinal: soft, non-tender Skin: no lesions Psychiatric: normal affect, normal behavior Hosp A/P (1) NSVT (nonsustained ventricular tachycardia) Code(s): I47.2 - VENTRICULAR TACHYCARDIA Status: Acute (2) Chronic systolic CHF (congestive heart failure) Code(s): I50.22 - CHRONIC SYSTOLIC (CONGESTIVE) HEART FAILURE Status: Chronic (3) Atrial fibrillation with RVR Code(s): I48.91 - UNSPECIFIED ATRIAL FIBRILLATION Status: Resolved (4) Sepsis Code(s): A41.9 - SEPSIS, UNSPECIFIED ORGANISM Status: Resolved (5) Elevated troponin Code(s): R79.89 - OTHER SPECIFIED ABNORMAL FINDINGS OF BLOOD CHEMISTRY Status : Ruled-out Plan: Likely due to a. fib with RVR - Plan continue antibiotics, out of bed/ambulate Pt awaiting ICD placement (later today) COVID-19 ruled out. Blood and urine cultures negative so far, change antibiotics to oral. Hyponatremia resolved.
[2020-05-13] MEDS ORDERED: Cefdinir 300 MG CAP PO SCH ×3 (14:15→21:00)
--- NOTE | 2020-05-13 16:15 | RAD ---
PORTABLE CHEST ONE VIEW: 05/13/20 at 4:01 p.m. HISTORY: Defibrillator placement. COMPARISON: 05/09/20. FINDINGS/IMPRESSION: There has been interval placement of a left sided pacing device. No pneumothorax is seen. POS: [facility]
[2020-05-13] MEDS ORDERED: Cephalexin 250 MG CAP PO SCH (17:00)
--- NOTE | 2020-05-13 19:32 | EKG ---
Test Reason : Blood Pressure : / mmHG Vent. Rate : 063 BPM Atrial Rate : 063 BPM P-R Int : 172 ms QRS Dur : 216 ms QT Int : 548 ms P-R-T Axes : 082 232 001 degrees QTc Int : 560 ms Normal sinus rhythm Right superior axis deviation Left bundle branch block Abnormal ECG When compared with ECG of 12-MAY-2020 10:54, Questionable change in QRS axis Nonspecific T wave abnormality has replaced inverted T waves in Inferior leads Confirmed by DR. Micheal AUGUSTINE ([id number]) on 05/13/2020 7:32:39 PM Referred By: KELLI Confirmed By:DR. Micheal AUGUSTINE
[2020-05-13] MEDS ORDERED: CEFAZOLIN 1 GM in Sodium Chloride 0.9% 100 ML IVPB SCH (22:00)
[2020-05-13] MEDS: Atorvastatin Calcium 40 MG TAB PO SCH (22:10)
[2020-05-13] MEDS: ceFAZolin 1 GM/D5W 1 GM in Premix Bag 1 BAG IVPB SCH (22:33)
[2020-05-14] MEDS: ceFAZolin 1 GM/D5W 1 GM in Premix Bag 1 BAG IVPB SCH (05:48)
[2020-05-14] MEDS: Carvedilol 6.25 MG TAB PO SCH ×2 (08:59→17:20)
[2020-05-14] MEDS: Amiodarone 200 MG TAB PO SCH ×2 (09:01→20:14)
[2020-05-14] MEDS: Aspirin Chewable 81 MG TAB PO SCH (09:01)
[2020-05-14] MEDS: Furosemide 40 MG TAB PO SCH (09:02)
[2020-05-14] MEDS: Lisinopril 5 MG TAB PO SCH (09:04)
--- NOTE | 2020-05-14 10:27 | PRG ---
DATE OF SERVICE: 05/14/2020 SUBJECTIVE: Mr. Handy is resting comfortably. No complaints. Feels well. OBJECTIVE: VITAL SIGNS: Blood pressure 91/55, pulse 60, atrial and biventricular paced AICD. LUNGS: Clear. CARDIAC: Normal S1, normal S2. ABDOMEN: Soft, nontender. EXTREMITIES: No edema. ASSESSMENT: 1. Status post biventricular pacemaker dual-chamber. 2. Nonischemic cardiomyopathy. PLAN: He is on carvedilol, lisinopril, Amiodarone, probably to be able to be released home tomorrow. We may have to reduce the carvedilol dose if the blood pressure remains low. Job ID: [id number]
--- NOTE | 2020-05-14 11:45 | PDOC.EP ---
- Subjective Date: 05/14/20 Time: 08:00 Interval History: status post ICD implant 05/13/2020. Patient feels well voicing some mild discomfort at the implant site but this is largely not bothersome to him. He is eager to go home and feels he is in stable condition - Review of Systems Constitutional: denies: chills, fever, malaise, sweats, weakness, other Respiratory: denies: cough, dry, hemoptysis, pleuritic pain, shortness of breath , SOB with excertion, sputum, wheezing, other Cardiology: denies: chest pain, edema, heart racing, light headedness, paroxysmal noc. dyspnea, orthopnea, palpitations, passing out, pleuritic pain, pressure, swelling, other Gastrointestinal: denies: abdominal pain, constipation, diarrhea, hematochezia, melena, nausea, vomitting, other - Objective Allergies/Adverse Reactions: Allergies Allergy/AdvReac Type Severity Reaction Status Date / Time No Known Allergies Allergy Verified 05/09/20 19:14 Current Medications Amiodarone HCl (Cordarone) 400 mg PO BID [facility] Last Admin: 05/14/20 09:01 Dose: 400 mg Aspirin (Aspirin Chewable) 81 mg PO DAILY [facility] Last Admin: 05/14/20 09:01 Dose: 81 mg Atorvastatin Calcium (Lipitor) 40 mg PO HS [facility] Last Admin: 05/13/20 22:10 Dose: 40 mg Carvedilol (Coreg) 6.25 mg PO BID-[facility] Cephalexin (Keflex) 500 mg PO Q8HR [facility] Stop: 05/21/20 06:01 Furosemide (Lasix) 40 mg PO DAILY [facility] Last Admin: 05/14/20 09:02 Dose: 40 mg Lisinopril (Zestril) 2.5 mg PO DAILY [facility] Miscellaneous Medication (Pharmacy To Dose) 1 each IVPB PRN PRN PRN Reason: Pharmacy to dose Nitroglycerin (Nitrostat) 0.4 mg SL Q5MIN PRN PRN Reason: Chest Pain Sodium Chloride (Flush - Normal Saline) 10 ml IVF Q12HR [facility] Last Admin: 05/14/20 09:05 Dose: 10 ml Sodium Chloride (Flush - Normal Saline) 10 ml IVF PRN PRN PRN Reason: Saline Flush Sodium Chloride (Flush - Normal Saline) 10 ml IVF PRN PRN PRN Reason: Saline Flush Vital Signs & Weight: Vital Signs Temp Pulse Resp BP BP BP Pulse Ox 05/14/20 09:04 60 91/55 L 05/14/20 08:59 91/54 L 05/14/20 07:39 96.1 F L 60 18 106/59 L 93 L 05/14/20 04:30 97.6 F 59 L 16 99/57 L 95 05/14/20 00:45 89/51 L Admit Weight 158 lb 14.4 oz Weight 148 lb 6.4 oz I/O: I/O 05/13/20 05/14/20 05/15/20 06:59 06:59 06:59 Intake Total 1810 1380 240 Output Total 1150 Balance 1810 230 240 - Quality Measures Condition: Atrial Fibrillation/Flutter (hx or current) - Physical Exam General: alert & oriented x3, appears well, no apparent distress, speech clear, affect appropriate HEENT: mucus membranes moist, normocephaly Neck: supple neck, midline trachea, no JVD/HJR Cardiology: regular rate and rhythm, PMI nondisplaced Lungs: clear to auscultation, normal breath sounds, no rhonchi Neurology: cranial nerve 2-12 intact, grossly intact, no lateralizing findings Abdomen: unremarkable, active bowel sounds, HJR negative Skin: device site stable w/o swelling, left sided device. negative: bruising, drainage, hematoma, swelling - Chadsvasc Risk factors Congestive heart failure: 1 Age >75: 2 Vascular disease: 1 Risk Score: 4 - Labs Result Diagrams: 05/13/20 03:44 05/13/20 03:44 - EKG Interpretation EKG Method: Telemetry EKG shows: Sinus rhythm (AV paced) - Device Device: biventricular, defibrillator Device Result: [employer] - Assessment/Plan Assessment/Plan: 1. acute on chronic congestive heart failure with nonischemic cardiomyopathy NYHA functional class 3 status 2. left bundle branch block, extensive 200 milliseconds in duration 3. nonsustained ventricular tachycardia 4. severely reduced ejection fraction of approximately 15% initially diagnosed in 2017 despite GDMT 5. atrial flutter with RVR newly diagnosed, status post external cardioversion in the emergency room s/p subpectoral BiV ICD implant. Post device check is stable showing normal lead parameters and device function. Telemetry shows sequential AV pacing. Post implant chest x-ray was negative for pneumothorax. For now I would continue amiodarone upon discharge, 200 mg p.o. daily. I anticipate discontinuing this in 6-8 weeks if no further arrhythmia recurrences are seen. Long-term, anticoagulation is indicated for his elevated chads Vasc score. Given his recent device implant that is subpectoral, I would postpone initiating this until the morning of 05/16/2020. he should be discharged with a prescription for Eliquis 5 mg b.i.d., amiodarone 200 mg daily, as well as 7 days of the Keflex as ordered. I will see him back in 6 weeks. Okay for discharge by EP
[2020-05-14] MEDS ORDERED: Cephalexin 250 MG CAP PO SCH (14:00)
--- NOTE | 2020-05-14 14:24 | PDOC.HOSPP ---
- Subjective Encounter Date: 05/14/20 Encounter Time: 07:20 Subjective: Pt seen for followup re: NSVT. Feels better today. - Objective Vital Signs & Weight: Vital Signs (12 hours) Temp Pulse Resp BP BP BP BP 05/14/20 12:00 97.5 F L 61 14 90/55 L 05/14/20 09:04 60 91/55 L 05/14/20 08:59 91/54 L 05/14/20 07:39 96.1 F L 60 18 106/59 L 05/14/20 04:30 97.6 F 59 L 16 99/57 L Pulse Ox 05/14/20 12:00 97 05/14/20 09:04 05/14/20 08:59 05/14/20 07:39 93 L 05/14/20 04:30 95 Weight Admit Weight 158 lb 14.4 oz Weight 148 lb 6.4 oz I&O: 05/13/20 05/14/20 05/15/20 06:59 06:59 06:59 Intake Total 1810 1380 240 Output Total 1150 Balance 1810 230 240 Result Diagrams: 05/13/20 03:44 05/13/20 03:44 Additional Labs: Labs and MARs reviewed by me EKG Reviewed by me: Yes (Tele: A- paced) Hospitalist ROS - Review of Systems Respiratory: denies: cough, shortness of breath, SOB with excertion, pleuritic pain, wheezing Cardiovascular: denies: chest pain, palpitations, orthopnea, paroxysmal noc. dyspnea, edema, light headedness - Medication Medications: Active Medications Generic Name Dose Route Start Last Admin Trade Name Johnnyq PRN Reason Stop Dose Admin Amiodarone HCl 400 mg 05/11/20 21:00 05/14/20 09:01 Cordarone PO 400 mg BID MAUREEN Administration Aspirin 81 mg 05/11/20 09:00 05/14/20 09:01 Aspirin Chewable PO 81 mg DAILY MAUREEN Administration Atorvastatin Calcium 40 mg 05/10/20 21:00 05/13/20 22:10 Lipitor PO 40 mg HS MAUREEN Administration Cephalexin 500 mg 05/14/20 14:00 05/14/20 13:51 Keflex PO 05/21/20 06:01 500 mg Q8HR MAUREEN Administration Furosemide 40 mg 05/11/20 09:00 05/14/20 09:02 Lasix PO 40 mg DAILY MAUREEN Administration Sodium Chloride 10 ml 05/09/20 09:00 05/14/20 09:05 Flush - Normal Saline IVF 10 ml Q12HR MAUREEN Administration - Exam General Appearance: NAD Eye: anicteric sclera ENT: no oropharyngeal lesions Neck: supple, no thyromegaly Heart: RRR Respiratory: CTAB Gastrointestinal: soft, non-tender Skin: no rashes Musculoskeletal: no muscle wasting Psychiatric: normal affect, normal behavior Hosp A/P (1) NSVT (nonsustained ventricular tachycardia) Code(s): I47.2 - VENTRICULAR TACHYCARDIA Status: Acute (2) Chronic systolic CHF (congestive heart failure) Code(s): I50.22 - CHRONIC SYSTOLIC (CONGESTIVE) HEART FAILURE Status: Chronic (3) Atrial fibrillation with RVR Code(s): I48.91 - UNSPECIFIED ATRIAL FIBRILLATION Status: Resolved (4) Sepsis Code(s): A41.9 - SEPSIS, UNSPECIFIED ORGANISM Status: Resolved (5) Elevated troponin Code(s): R79.89 - OTHER SPECIFIED ABNORMAL FINDINGS OF BLOOD CHEMISTRY Status : Ruled-out - Plan s/p ICD placement Blood pressure low, change coreg to 6.25 mg BID and lisinopril to 2.5 mg po daily. COVID-19 ruled out. Likely home tomorrow. Continue antibiotics.
--- NOTE | 2020-05-14 18:00 | EKG ---
Test Reason : POSTOP Blood Pressure : / mmHG Vent. Rate : 066 BPM Atrial Rate : 066 BPM P-R Int : 164 ms QRS Dur : 170 ms QT Int : 522 ms P-R-T Axes : 067 261 038 degrees QTc Int : 547 ms Atrial-sensed ventricular-paced rhythm with Premature atrial complexes with Abberant conduction Abnormal ECG When compared with ECG of 13-MAY-2020 10:45, Electronic ventricular pacemaker has replaced Sinus rhythm Confirmed by DR. Micheal AUGUSTINE ([id number]) on 05/14/2020 5:59:25 PM Referred By: [facility] Confirmed By:DR. Micheal AUUGSTINE
--- NOTE | 2020-05-14 18:08 | EKG ---
Test Reason : TIMED Blood Pressure : / mmHG Vent. Rate : 060 BPM Atrial Rate : 060 BPM P-R Int : 144 ms QRS Dur : 180 ms QT Int : 544 ms P-R-T Axes : 070 -82 084 degrees QTc Int : 544 ms AV sequential or dual chamber electronic pacemaker When compared with ECG of 13-MAY-2020 16:05, (Unconfirmed) Abberant conduction is no longer Present Vent. rate has decreased BY [address] Micheal AUGUSTINE ([id number]) on 05/14/2020 6:08:17 PM Referred By: [facility] Confirmed By:DR. Micheal AUGUSTINE
[2020-05-14] MEDS: Atorvastatin Calcium 40 MG TAB PO SCH (20:14)
[2020-05-14] MEDS: Clindamycin 150 MG CAP PO SCH (21:25)
[2020-05-15] MEDS: Clindamycin 150 MG CAP PO SCH ×2 (05:40→14:57)
[2020-05-15 08:02] VITALS: TEMP 97.5
[2020-05-15] MEDS: Amiodarone 200 MG TAB PO SCH (08:38)
[2020-05-15] MEDS: Carvedilol 6.25 MG TAB PO SCH (08:38)
[2020-05-15] MEDS: Aspirin Chewable 81 MG TAB PO SCH (08:39)
[2020-05-15] MEDS: Furosemide 40 MG TAB PO SCH (08:39)
[2020-05-15] MEDS ORDERED: Lisinopril 2.5 MG TAB PO SCH (09:00)
--- NOTE | 2020-05-15 09:40 | PRG ---
DATE OF SERVICE: 05/15/2020 SUBJECTIVE: Mr. Handy is doing well. One of his medicines nauseated him yesterday. He is not sure which one, but he feels well today. He is not short of breath. OBJECTIVE: VITAL SIGNS: His blood pressure 108/58, pulse 61 and it is regular. LUNGS: Clear. CARDIAC: Normal S1 and normal S2. ABDOMEN: Soft and nontender. EXTREMITIES: There is no edema. ASSESSMENT: 1. Nonischemic cardiomyopathy, tolerating medication. 2. Status post biventricular pacemaker defibrillator. 3. Atrial flutter with rapid ventricular response, newly diagnosed, no recurrence. PLAN: 1. Continue amiodarone. 2. Beta ann. 3. He is receiving Eliquis here. I am not sure he can afford that at home. We will try to at least give him some samples. If not outpatient Coumadin would be a possibility, but he has been relatively noncompliant with followups. I do not know how feasible that will be. He would need to come to the [facility] for that. From my standpoint, he can be released home. Job ID: [id number]
[2020-05-15 15:31] VITALS: BP 97/56
[2020-05-15] MEDS ORDERED: Carvedilol 3.125 MG TAB PO SCH (17:00)
[2020-05-15] MEDS ORDERED: Amiodarone 200 MG TAB PO SCH (21:00)
--- NOTE | 2020-05-16 03:09 | DIS ---
DATE OF ADMISSION: 05/09/2020 DATE OF DISCHARGE: 05/15/2020 PRIMARY CARE PROVIDER: Bethany Gupta DISCHARGE DIAGNOSES: 1. New onset atrial fibrillation with rapid ventricular response. 2. Nonsustained ventricular tachycardia. 3. Chronic systolic congestive heart failure. 4. Nonischemic cardiomyopathy. 5. Hyponatremia. 6. Hyperkalemia. 7. Sepsis ruled out. CONDITION OF PATIENT ON THE DAY OF DISCHARGE: Stable. I assessed Mr. Handy on the day of discharge. He denies any chest pain or shortness of breath. Vital signs are stable. S1 and S2 are heard, regular. Lungs are clear to auscultation bilaterally. CONSULTATIONS DURING THIS HOSPITALIZATION: Cardiology, Dr. Smyth and Electrophysiology, Dr. Guevara. HOSPITAL COURSE: Mr. Handy is a pleasant 79-year-old gentleman, who was admitted to [facility] for hypotension and atrial fibrillation with rapid ventricular response on May 09, 2020. Please refer to my history and physical note dated May 09, 2020 for further details. He was electrically cardioverted in the emergency room. He was seen by Cardiology and Electrophysiology Services. 2D echocardiogram showed left ventricular ejection fraction of 10% to 15% and severely increased left ventricular size. He also had E/a flow reversal suggestive of diastolic dysfunction. He underwent placement of biventricular ICD by Electrophysiology Service. He continued to improve clinically. His blood pressures were borderline low and therefore, his lisinopril and Coreg doses were decreased. He is being discharged home in a stable condition. DISCHARGE MEDICATIONS: 1. Aspirin 81 mg daily. 2. Lasix 40 mg daily. 3. Nitroglycerin p.r.n. 4. Clindamycin 300 mg every 8 hours for six more days. 5. Amiodarone 200 mg 2 times a day. 6. Apixaban 5 mg 2 times a day. 7. Lipitor 40 mg at bedtime. 8. Coreg 3.125 mg 2 times a day. 9. Lisinopril 2.5 mg daily. On May 13, he had hemoglobin 11.8 and creatinine 1.22. Fasting lipid profile during this hospitalization showed triglycerides 51, cholesterol 93, LDL cholesterol 55, and HDL cholesterol 28. His liver function tests were abnormal at the time of admission. They continued to improve even though he was on statin during this admission. He is being discharged home on statin and advised to have his liver function tests checked through his primary care provider's office in 5 to 7 days. His AST was 61 and ALT was 75 on May 12, 2020. POST-ACUTE CARE FOLLOWUP: With primary care provider on May 21, 2020 at 8:30 a.m., with Dr. Guevara in 2 weeks, and with Dr. Triana in 1 week. ACTIVITY: As tolerated. DIET: Heart healthy and low-sodium. DISCHARGE DESTINATION: Home. TIME SPENT: Total amount of time spent coordinating this discharge: 31 minutes. Job ID: [id number]
[2020-05-16] MEDS ORDERED: Apixaban 5 MG TAB PO SCH (09:00)
--- NOTE | 2020-05-16 10:49 | EKG ---
Test Reason : TIMED Blood Pressure : / mmHG Vent. Rate : 062 BPM Atrial Rate : 062 BPM P-R Int : 164 ms QRS Dur : 190 ms QT Int : 552 ms P-R-T Axes : 019 -85 037 degrees QTc Int : 560 ms AV sequential or dual chamber electronic pacemaker When compared with ECG of 14-MAY-2020 09:39, Vent. rate has increased BY [address] Micheal AUGUSTINE ([id number]) on 05/16/2020 10:48:38 AM Referred By: [facility] Confirmed By:DR. Micheal AUGUSTINE
--- NOTE | 2020-05-16 14:19 | EKG ---
Test Reason : POST CARDIOVERT Blood Pressure : / mmHG Vent. Rate : 092 BPM Atrial Rate : 092 BPM P-R Int : 160 ms QRS Dur : 204 ms QT Int : 480 ms P-R-T Axes : 065 -10 005 degrees QTc Int : 593 ms Normal sinus rhythm Non-specific intra-ventricular conduction block Possible Lateral infarct , age undetermined Abnormal ECG No ST elevation/CA T wave inversion V3-V6, III, aVF Confirmed by YVONNE LOVE M.D. ([id number]), editorial manager GALINDO STANLEY ([id number]) on 05/16/2020 2:19:14 PM Referred By: Confirmed By:YVONNE LOVE M.D.
--- NOTE | 2020-05-16 14:38 | EKG ---
Test Reason : Blood Pressure : / mmHG Vent. Rate : 143 BPM Atrial Rate : 143 BPM P-R Int : 128 ms QRS Dur : 200 ms QT Int : 344 ms P-R-T Axes : 064 040 263 degrees QTc Int : 530 ms Atrial fibrillation with rapid ventricular response Indeterminate axis Non-specific intra-ventricular conduction block Possible Lateral infarct , age undetermined Abnormal ECG Confirmed by JORGE HALL ([id number]), market editor GALINDO STANLEY ([id number]) on 05/16/2020 2:38:24 PM Referred By: Confirmed By:JORGE HALL
--- NOTE | 2020-05-18 06:57 | PQF ---
KEIKO DAMON DAVID [id number] KAYLA BACA [id number] CLINICAL DOCUMENTATION CLARIFICATION FORM: POST DISCHARGE Addendum to original discharge summary date: ____ Late entry note date: __ DATE: 05/18/2020 ATTN:Jonnathan Rayo Please exercise your independent, professional judgment in responding to the clarification form. Clinical indicators are provided on the bottom of this form for your review Please check appropriate box(s): Conflicting documentation was noted in the Medical Record, please clarify if patient is being treated/monitored for: [ x ] Chronic systolic CHF [ ] Acute on chronic systolic and diastolic CHF [ ] Other diagnosis [ ] Unable to determine In addition, please specify: Present on Admission (POA): [ x ] Yes [ ] No [ ] Unable to determine For continuity of documentation, please document condition throughout progress notes and discharge summary. Thank You. CLINICAL INDICATORS - SIGNS / SYMPTOMS/ LABS Consult 05/11 "acute on chronic systolic and diastolic CHF" DS 05/15 "chronic systolic CHF" PN 05/11 "acute on chronic CHF with nonischemic cardiomyopathy" ED Notes 05/09 "complains of dizziness" ED Notes 05/09 "Swelling of ankle" TTE collected 05/10 "EF 10-15%" Chest Xray 05/12 "Cardiomegaly" Labs BNP: 05/0970=7786.1 Vital Signs 05/09: Temp=98.5 Pulse=91 FS=435/67 Respi=20 RISK FACTORS CAD-ED Notes 05/09 CHF-ED Notes 05/09 79 years olf male-HP 05/09 Afib-HP 05/09 HTN-Consult 05/11 LBBB-Consult 05/11 Hypercholesterolemia-Consult 05/11 Ischemic cardiomyopathy-Consult 05/11 NSVT-PN 05/12 Aflutter-PN 05/11 TREATMENT Electrocardiogram-Collected 05/09 EKG-ED Notes 05/09 AICD insertion-OP Note 05/13 Cardioversion-PN 05/10 TTE-Collected 05/10 Chest Xray-Collected 05/09 Cardiology consult-DS 05/15 Levophed 250ml IV-JAN 30 Lasix 40mg Oral-JAN 30 (This form is maintained as a part of the permanent medical record) 2014 [employer], [employer] All Rights Reserved Erna [email or web address] [phone] [facility] HOSPITALBrian
--- NOTE | 2020-05-18 06:59 | PQF ---
KEIKO DAMON DAVID [id number] KAYLA BACA [id number] CLINICAL DOCUMENTATION CLARIFICATION FORM: POST DISCHARGE Addendum to original discharge summary date: ____ Late entry note date: __ DATE: 05/18/2020 ATTN:Jonnathan Rayo Please exercise your independent, professional judgment in responding to the clarification form. Clinical indicators are provided on the bottom of this form for your review Please check appropriate box(s) to clarify if the following diagnosis has been ruled in or ruled out: NSTEMI [ ] Ruled in diagnosis [ ] Continue to treat [ ] Resolved [ ] Ruled out diagnosis [ ] Cannot rule out diagnosis [ x ] Other diagnosis ___NSTEMI TYPE 2 SECONDARY TO ATRIAL FIBRILLATION WITH RAPID VENTRICULAR RESPONSE [ ] Unable to determine For continuity of documentation, please document condition throughout progress notes and discharge summary. Thank You. CLINICAL INDICATORS - SIGNS / SYMPTOMS / LABS Consult 05/11 "Nstemi probaly type 2 from atrial fibrillation and electrical cardioversion" PN 05/13 "NSTEMI not demand ischemia" PN 05/14 "Ruled out elevated troponin" ED Notes 05/09 "NSTEMI" ED Notes 05/09 "complains of dizziness" Electrocardiogram 05/09 "possible lateral infarct, age undertermined" Vital Signs 05/09: Temp=98.5 Pulse=91 GO=650/67 Respi=20 PN 05/10 "elevated troponin could be secondary to electrical cardioversion and Afib" Labs troponin: 05/09=0.752,5.989 05/10=3.910 RISK FACTORS CAD-ED Notes 05/09 CHF-ED Notes 05/09 79 years olf male-HP 05/09 Afib-HP 05/09 HTN-Consult 05/11 LBBB-Consult 05/11 Hypercholesterolemia-Consult 05/11 Ischemic cardiomyopathy-Consult 05/11 NSVT-PN 05/12 Aflutter-PN 05/11 TREATMENTS Electrocardiogram-Collected 05/09 EKG-ED Notes 05/09 AICD insertion-OP Note 05/13 Cardioversion-PN 05/10 TTE-Collected 05/10 Chest Xray-Collected 05/09 Cardiology consult-DS 05/15 Levophed 250ml IV-JAN 30 Lasix 40mg Oral-JAN 30 (This form is maintained as a part of the permanent medical record) 2014 [employer], [employer] All Rights Reserved [email or web address]
== END 2020-05-15 15:30 | disposition home or self-care (01) | DRG 226 ==
LOC: ERS 06:17 → ERHOLD 08:30 → 2SW 05-10 07:31 → 2NO 05-10 17:44
PROVIDERS: ADMIT Internal Medicine; ATTEND Internal Medicine
PROC: 5A2204Z Restoration of Cardiac Rhythm, Single (ICD-10-PCS; 2020-05-09)
PROC: 3E033XZ Introduction of Vasopressor into Peripheral Vein, Percutaneous Approach (ICD-10-PCS; 2020-05-09)
PROC: 3E02340 Introduction of Influenza Vaccine into Muscle, Percutaneous Approach (ICD-10-PCS; 2020-05-10)
PROC: 0JH609Z Insertion of Cardiac Resynchronization Defibrillator Pulse Generator into Chest Subcutaneous Tissue and Fascia, Open Approach (ICD-10-PCS; principal; 2020-05-13)
PROC: 02HL3KZ Insertion of Defibrillator Lead into Left Ventricle, Percutaneous Approach (ICD-10-PCS; 2020-05-13)
PROC: 02HK3KZ Insertion of Defibrillator Lead into Right Ventricle, Percutaneous Approach (ICD-10-PCS; 2020-05-13)
PROC: 02H63KZ Insertion of Defibrillator Lead into Right Atrium, Percutaneous Approach (ICD-10-PCS; 2020-05-13)
DX: I48.0 Paroxysmal atrial fibrillation (principal); I21.A1 Myocardial infarction type 2; E87.1 Hypo-osmolality and hyponatremia; I50.22 Chronic systolic (congestive) heart failure; Z23 Encounter for immunization; Z20.828 Contact with and (suspected) exposure to other viral communicable diseases; I42.8 Other cardiomyopathies; I47.1 Supraventricular tachycardia; I48.92 Unspecified atrial flutter; I25.10 Atherosclerotic heart disease of native coronary artery without angina pectoris; I44.7 Left bundle-branch block, unspecified; E87.5 Hyperkalemia; E78.00 Pure hypercholesterolemia, unspecified; Z79.82 Long term (current) use of aspirin; Z79.899 Other long term (current) drug therapy; I11.0 Hypertensive heart disease with heart failure
CPT/HCPCS: 33249; 33264; 36415; 51702; 70450; 71045; 76942; 80048; 80053; 80061; 80202; 81003; 81015; 82553; 83880; 84484; 85025; 85610; 85730; 87040; 87086; 87635; 93005; 93010; 93306; 93642; 96360; 96365; 96367; 96372; 96374; 96375; 99292; C1777; C1882; C1898; C1900; J0690; J0692; J1160; J1580; J1650; J2250; J2310; J2405; J3010; J3370; J3490; J7050; U0003

== ENCOUNTER 2020-06-05 13:07 | Observation (INO) | payer MEDICARE ==
--- NOTE | 2020-06-05 14:19 | RAD ---
EXAM: CHEST ONE VIEW HISTORY: Numbness to bilateral upper and lower extremities for 2 weeks. COMPARISON: 05/13/2020 FINDINGS: Triple lead left subclavian AICD device remains place. Cardiac silhouette remains enlarged. The pulmo nary vasculature is within normal limits. Lungs are clear. Minimal patchy airspace opacities at each lung base on the prior study have resolved. Most inferior aspect right lateral costophrenic angl e is excluded from view. No other interval change. IMPRESSION: 1. No acute cardiopulmonary process. 2. Cardiomegaly without overt CHF.
[2020-06-05 14:32] LABS: Hemoglobin 14.2 g/dL (14.0-18.0); Mean Corpuscular HGB CONC 31.9 g/dL (32.0-36.0); Mean Corpuscular Hemoglobin 30.7 pg (27.0-31.0); Mean Corpuscular Volume 96.5 fL (78.0-98.0); Mean Platelet Volume 7.5 fL (7.4-10.4); Platelet Count 161 thou/uL (130-400); RBC Distribution Width 13.2 % (11.5-14.5); Red Blood Cell (RBC) Count 4.61 mill/uL (4.70-6.10); White Blood Cell (WBC) Count 4.9 thou/uL (4.8-10.8)
[2020-06-05 14:53] LABS: ALT (SGPT) 25 U/L (8-55); AST (SGOT) 28 U/L (5-34); Albumin 3.8 g/dL (3.4-4.8); Alkaline Phosphatase 87 U/L (40-110); Anion Gap 11 mmol/L (10-20); BUN (Urea Nitrogen) 29 mg/dL (8.4-25.7); Bilirubin, Total 0.7 mg/dL (0.2-1.2); CK (CPK) 37 U/L (30-200); Calc. Creatinine Clearance 0 mL/min (70-130); Calcium 8.9 mg/dL (7.8-10.44); Carbon Dioxide 24 mmol/L (23-31); Chloride 105 mmol/L (98-107); Estimated GFR-MDRD 64; Globulin 2.8 g/dL (2.4-3.5); Glucose 86 mg/dL (83-110); Potassium 4.9 mmol/L (3.5-5.1); Protein, Total 6.6 g/dL (5.8-8.1); Sodium 135 mmol/L (136-145)
[2020-06-05 14:56] LABS: Band 2 % (5-11); Eosinophils 6 % (0-10); Lymphocytes 17 % (21-51); MDiff Complete? YES; Monocytes 12 % (0-10); Neutrophil 60 % (42-75); Platelet Morphology Comment Appears Adequate; RBC Morphology Normal; Reactive Lymphocytes 1 % (0-10)
--- NOTE | 2020-06-05 14:59 | RAD ---
Radiograph right hip 2 views: 06/05/2020 HISTORY: 79-year-old male with right hip pain FINDINGS: Femoral head contour is maintained. Hip joint space is maintained. No fracture or dislocation. Mild s uperolateral subcutaneous capital osteophytes. Mild bony hypertrophy of acetabular roof. Degenerative disc disease at lumbosacral junction. IMPRESSION: 1. Mild osteoarthrosis of right hip. 2. Degenerative disc disease at lumbosacral junction.
--- NOTE | 2020-06-05 15:03 | CT ---
HEAD CT WITHOUT CONTRAST: 06/05/20 HISTORY: Bilateral upper and lower extremity weakness, x2 weeks, numbness. COMPARISON: 05/09/20. FINDINGS: No parenchymal hemorrhage. No extra-axial hematoma. No midline shift. Basilar cisterns are patent. Brain volume is age appropriate. Cortical wu-white matter differentiat ion is preserved. No hydrocephalus. Intact calvarium. Adequate aeration of the sinuses and mastoid air cells. There appears to be encephalomalacia and gliosis involving the posterior superior right frontal and a nterior superior right parietal lobes. Degree of encephalomalacia is unchanged. IMPRESSION: No acute intracranial process. POS: [facility]
[2020-06-05] MEDS ORDERED: Morphine 4 MG/ML VIAL ONE (16:43)
[2020-06-05] MEDS ORDERED: Ondansetron PF 4 MG/2 ML Vial ONE (16:43)
--- NOTE | 2020-06-05 17:32 | ULT ---
RIGHT LOWER EXTREMITY ARTERIAL DOPPLER STUDY: Date: 06/05/2020 INDICATION: Right lower extremity pain and edema. Arteries of right lower extremity evaluated with ultrasound and Doppler. Color Doppler with spectral analysis and velocity recordings obtained. FINDINGS: The right common femoral artery shows a biphasic waveform with slightly reduced velocities. This coul d represent occlusion proximally in the iliacs. The right profunda shows a biphasic waveform. The proximal right superficial femoral artery is biphas ic. The more distal superficial femoral artery and the popliteal artery shows a triphasic waveform with s ymmetric velocities. The posterior tibial artery is triphasic with normal velocities. There are decreased velocities with a biphasic waveform in the anterior tibial artery and dorsal pedi s artery. IMPRESSION: Decreased velocities in the right common femoral artery with biphasic waveform suggests possibly a pr oximal iliac artery stenosis. Evidence of arterial occlusive change below the knee on the right invol ving the anterior tibial artery. Consider further evaluation with catheter angiogram or CTA. POS: [facility]
[2020-06-05] MEDS ORDERED: Acetaminophen 325 MG TAB PO PRN (18:15)
[2020-06-05] MEDS ORDERED: Acetaminophen 650 MG Suppository PR PRN (18:15)
--- NOTE | 2020-06-05 18:46 | CT ---
CT of thethoracic spine: 06/05/2020 COMPARISON:None HISTORY:Pain with right-sided radiculopathy TECHNIQUE: Serial axial CT imaging at3.75 mm intervals from thelower cervical spine through upper lum bar spine without contrast. Coronal and sagittal reformatted imaging obtained Findings:Obstetrics Gyn imaging demonstrates an enlarged cardiac silhouette with a multilead transvenous left- sided AICD. Evaluation for central canal and/or neural foraminal stenosis is limited on CT. There is scattered at herosclerotic calcification of the visualized aorta. The partially imaged lung parenchyma demonstrates no acute findings. There is multilevel cervical spine disc space narrowing and degenerative endplate change. No anteroli sthesis or retrolisthesis. No osseous cause of significant central canal or neural foraminal stenosis within the thoracic spine. No acute fracture or dislocation. No worrisome lytic or blastic b one lesion. Impression:No thoracic spine fracture noted.
[2020-06-05] MEDS ORDERED: Enoxaparin Sodium 40 MG/0.4 ML SYRINGE SC SCH (19:00)
--- NOTE | 2020-06-05 19:26 | CT ---
LUMBAR SPINE CT SCAN WITHOUT IV CONTRAST: 06/05/20 HISTORY: Right hip pain, numbness radiating down right leg. FINDINGS: Extensive multilevel disc osteophytosis changes are noted with some multiple peridiscal cystic change s. No evidence for acute fracture or dislocation. Diffuse disc osteophytosis changes are noted. T12-L1 disc: Mild lateral recess stenosis and foraminal stenosis. L1-L2 disc: Mild central canal and moderate lateral recess stenosis and bilateral foraminal stenosis. L2-L3 disc: Moderate central canal and moderate to severe bilateral recess stenosis and moderate bila teral foraminal stenosis. L3-L4 disc: Moderate central canal and moderate to severe lateral recess stenosis and bilateral bright inal stenosis. L4-L5 disc: Moderate central canal and moderate to severe lateral recess stenosis and bilateral bright inal stenosis. L5-S1 disc: Mild retrolisthesis. Moderate central canal and lateral recess and foraminal stenosis. IMPRESSION: Multilevel variable severity up to moderate to severe, mostly lateral recess and foraminal stenosis a s above. No acute fracture or dislocation. POS: [facility]
--- NOTE | 2020-06-05 20:14 | HP ---
TIME OF ASSESSMENT: 1700 hours. CHIEF COMPLAINT: Right hip and leg pain with numbness. PRIMARY CARE PROVIDER: Bethany Gupta. HISTORY OF PRESENT ILLNESS: Mr. Handy is a 79-year-old gentleman, who presents to the emergency department today with increasing pain on the right hip causing him inability to walk after walking for short distances. He denies any extremity weakness, but has noted numbness with pain that radiates down the right leg down to the midcalf. He reports chronic lower back pain, which remains unchanged and denies any trauma or falls. He does report heavy lifting on a regular basis. Does not recall any particular injury that may have exacerbated the symptoms since they started 2 weeks ago. He states he has a high tolerance for pain and does not like to take any pain medications ever and has not used anything for his discomfort at home. Reports that the altered sensation involving the right lower extremity is constant. He has no difficulty with his leg giving out or with lifting his leg , but states his mobility is affected due to the pain that worsens when he is standing or walking. He states he sustained a major injury in the past, for which, he did not undergo any type of workup and has always had a tolerable chronic back pain. The patient also reports mild numbness in the first and second fingers of the right hand at the very tips of the fingers and states this has been present since undergoing his pacemaker placement a month ago in April. He had been admitted from May 09 through May 15, after presenting with new onset atrial fibrillation with rapid ventricular response and nonsustained ventricular tachycardia. The patient underwent an ICD placement by Dr. Guevara. He denies having any chest pain, palpitations, or shortness of breath. All other review of systems is negative. ED COURSE: In the emergency department, he underwent an EKG showing a paced rhythm with a heart rate of 62. Vital signs are unremarkable. He had laboratory studies done showing a white count of 4.9, hemoglobin 14.2, hematocrit 44.5, platelet count 61, neutrophils 60%, bands 2%. Sodium 135, BUN 29, creatinine 1.11, GFR 64, glucose 86. LFTs, unremarkable. Troponin indeterminate at 0.058. CT head was done showing no acute intracranial process. He had a chest x-ray done showing no acute cardiopulmonary process. Cardiomegaly present without overt CHF. Right hip x- ray obtained showing mild osteoarthrosis of the right hip with degenerative disk disease at the lumbosacral joint. The patient was offered morphine; however, he refused. 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 He is being admitted for further workup and management. Per ED physician, case was discussed with Cardiovascular Surgery. PAST MEDICAL HISTORY: 1. CHF. 2. CAD. 3. Chronic back pain. 4. Atrial fibrillation with rapid ventricular response, diagnosed in April 2020. PAST SURGICAL HISTORY: Appendectomy. SOCIAL HISTORY: The patient denies any tobacco use, alcohol consumption, or history of illicit drug use. FAMILY HISTORY: Noncontributory. ALLERGIES: NO KNOWN DRUG ALLERGIES. CURRENT MEDICATIONS: 1. Meclizine 25 mg 2 tablets p.o. q.8 hours. 2. Atorvastatin 40 mg p.o. daily. 3. Carvedilol 12.5 mg p.o. b.i.d. 4. Furosemide 40 mg p.o. daily. 5. Lisinopril 5 mg p.o. daily. PHYSICAL EXAMINATION: GENERAL: The patient appears thin, well developed, and in no acute distress. VITAL SIGNS: Temperature 97.3, pulse 67, blood pressure 136/73, respirations 25 , O2 saturation 98% on room air. HEENT: Normocephalic and atraumatic. Pupils are equal, round, and reactive to light. Sclerae without icterus. Oropharynx is clear. NECK: Supple. LUNGS: Clear to auscultation bilaterally without any wheezes, rales, or rhonchi. CARDIAC: Regular rate and rhythm. ABDOMEN: Soft, nontender, and nondistended with bowel sounds present. No guarding or rigidity. No renal angle tenderness. EXTREMITIES: No lower leg swelling or edema. Right lower extremity with notable pallor, cool to touch, faint pedal pulses, able to straight to an extent. NEUROLOGIC: Alert and oriented x3. No neuro deficits on exam except for slightly reduced sensation involving the right lower leg. Able to straight leg raise, passive and against resistance without any back pain elicited. Power 5/5. Plantar flexion and extension against resistance are normal. Facial movements are normal. Facial sensation is intact. No upper extremity numbness or weakness. normal. Coordination, normal. SKIN: Otherwise, warm and dry. INVESTIGATIONS: As mentioned above in HPI. IMPRESSION AND PLAN: Mr. Handy is a 79-year-old gentleman, who is being admitted for management of the followin. Right hip pain which has been radiating down his right leg with reduced sensation in the right lower extremity. The patient with a history of chronic back pain and previous trauma, for which, he never underwent investigations. States this has been gradually worsening for the last 2 weeks, and does heavy lifting frequently. We will obtain CT imaging of the thoracolumbar spine to assess for underlying radiculopathy. PT and OT are consulted. 2. Peripheral arterial disease. 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 Simms. The patient's case was reportedly discussed with Cardiovascular Surgery. We will ensure consultation is placed. 3. Indeterminate troponin. We will continue to trend troponin. Cardiac monitoring. He has a history of atrial fibrillation with rapid ventricular response, diagnosed in April 2020, for which, he underwent electrical cardioversion in the emergency room and eventually had an automatic implantable cardioverter-defibrillator placed by Dr. Guevara of . The patient likely has chronically elevated troponin. He denies any acute coronary syndrome symptoms. We will continue to monitor. 4. Coronary artery disease. We will reconcile home medications once verified. 5. History of chronic congestive heart failure. Last echo done on May 11, 2020. Ejection fraction at that time was 10% to 15%, hence, the automatic implantable cardioverter-defibrillator placement. No indication of exacerbation of his congestive heart failure. We will plan to keep the patient n.p.o. after midnight while he awaits Cardiovascular Surgery. Therefore, we will give gentle hydration so as to not cause any fluid overload. 6. Gastrointestinal prophylaxis with famotidine. 7. Deep venous thrombosis prophylaxis. We will hold mechanical sequential compression devices given peripheral arterial disease. We will give pharmacoprophylaxis with Lovenox. 8. Code status is full. Surrogate decision maker is his , Esperanza Yepez. Case was discussed with Dr. Marmolejo, who agrees with plan of care as described above. Job ID: [id number] MTDD
[2020-06-05] MEDS: Famotidine/PF 20 mg/2ml Vial SLOW IVP SCH (20:32)
[2020-06-05 21:06] LABS: Troponin I 0.065 ng/mL (< 0.028)
[2020-06-05] MEDS: Sodium Chloride 0.9% 1,000 ML IV SCH (23:01)
[2020-06-06 04:56] LABS: #Basophils 0.1 thou/uL (0.0-0.2); #Eosinphils 0.2 thou/uL (0.0-0.7); #Lymphocytes 0.8 thou/uL (1.20-3.40); #Monocytes 0.7 thou/uL (0.11-0.59); %Basophils 1.1 % (0.0-1.0); %Eosinophils 3.4 % (0.0-10.0); %Lymphocytes 17.2 % (21.0-51.0); %Monocytes 14.3 % (0.0-10.0); Hemoglobin 13.3 g/dL (14.0-18.0); Mean Corpuscular HGB CONC 32.4 g/dL (32.0-36.0); Mean Corpuscular Hemoglobin 30.8 pg (27.0-31.0); Mean Platelet Volume 7.9 fL (7.4-10.4); Platelet Count 149 thou/uL (130-400); RBC Distribution Width 13.2 % (11.5-14.5); Red Blood Cell (RBC) Count 4.33 mill/uL (4.70-6.10); White Blood Cell (WBC) Count 4.6 thou/uL (4.8-10.8)
[2020-06-06 05:15] LABS: Anion Gap 11 mmol/L (10-20); BUN (Urea Nitrogen) 24 mg/dL (8.4-25.7); Calc. Creatinine Clearance 66 mL/min (70-130); Calcium 8.2 mg/dL (7.8-10.44); Carbon Dioxide 22 mmol/L (23-31); Chloride 107 mmol/L (98-107); Estimated GFR-MDRD 90; Glucose 85 mg/dL (83-110); Potassium 4.3 mmol/L (3.5-5.1); Sodium 136 mmol/L (136-145)
[2020-06-06] MEDS: Famotidine/PF 20 mg/2ml Vial SLOW IVP SCH (08:20)
[2020-06-06 11:28] VITALS: TEMP 98
[2020-06-06 12:58] VITALS: BMI 19.6
--- NOTE | 2020-06-06 13:14 | CON ---
DATE OF CONSULTATION: 06/06/2020 REQUESTING PHYSICIAN: Dr. Marmolejo. CHIEF COMPLAINT: Right hip and leg pain. HISTORY OF PRESENT ILLNESS: The patient is a 79-year-old man, who about a month ago presented with lightheadedness and was found to be hypotensive with rapid atrial fibrillation requiring pressor support and DC cardioversion. At that time, he underwent implantation of biventricular AICD pacer and was discharged home. About 2 weeks ago, he had fairly sudden onset of right lower extremity pain. He is a bit equivocal about whether the episodic sharp low back pain on the right side that he is experiencing was associated with that sudden onset of symptoms that he describes as pain and numbness wrapping around the lateral aspect of his right hip and thigh going on down to the lateral or anterolateral aspect of his lower leg. It hurts worse when he walks. He describes his back hurting if he stands for very long at a time and that these symptoms are interfering with his ability to walk. PAST MEDICAL HISTORY: Significant for a nonischemic cardiomyopathy with left ejection fraction in the 15% to 20% range. He has mild coronary artery disease by catheterization, hypercholesterolemia. He recently underwent implantation of a biventricular AICD pacer. HOME MEDICATIONS: 1. Baby aspirin a day. 2. Eliquis 5 mg b.i.d. 3. Amiodarone 200 mg b.i.d. 4. Lisinopril 2.5 mg a day. 5. Coreg 3.125 mg b.i.d. 6. Lasix 40 mg a day. ALLERGIES: DENIES ANY MEDICAL ALLERGIES. REVIEW OF SYSTEMS: Negative for any antecedent claudication symptoms and negative for any rest pain. PHYSICAL EXAMINATION: GENERAL: He is a tall thin man, in no distress. VITAL SIGNS: Heart rate is 64, blood pressure 108/58. He is 5 feet 11, weighs 141 pounds. His maximum temperature since being admitted yesterday evening is 98.2. LUNGS: He has clear breath sounds. Regular rate and rhythm. ABDOMEN: Soft and nontender. VASCULAR: He has easily palpable radial, femoral, dorsalis pedis, and posterior tibial pulses bilaterally. He has no associated femoral bruits. EXTREMITIES: He has some spider varicosities about the ankles and feet. He has brisk capillary refill. No clubbing, cyanosis, or edema. IMAGING: Chest x-ray shows rather impressive cardiomegaly with an AICD implanted via the left subclavian approach. His vascular ultrasound report describes some decreased velocities with biphasic waveforms in the right common femoral and some stenosis of the right anterior tibial. Review of the preserved films of that study show relatively mild plaque in the femoral system with triphasic flow in the profunda and SFA. LABORATORY DATA: Showed hemoglobin 14.2, platelets 161,000, normal electrolytes, BUN 29, creatinine 1.11. Troponins were mildly elevated at 0.058, 0.065, and 0.070. LFTs were normal. Albumin 3.8. IMPRESSION AND RECOMMENDATIONS: The patient has essentially a normal vascular exam and symptoms that are far more compatible with sciatica than even with vascular claudication let alone resting ischemic symptoms, and I would not pursue vascular workup or treatment any further. Job ID: [id number]
[2020-06-06 15:37] VITALS: BP 118/69
[2020-06-06] MEDS: Sodium Chloride 0.9% 1,000 ML IV SCH (15:41)
--- NOTE | 2020-06-06 19:53 | DIS ---
DATE OF ADMISSION: 06/05/2020 DATE OF DISCHARGE: 06/06/2020 HOSPITAL COURSE: Mr. Handy is a 79-year-old male with a medical history of CHF, coronary artery disease, chronic back pain, and atrial fibrillation, who presented with right hip pain radiating down his right thigh that is improved by bending and worse by standing up. He was diagnosed with multiple-level spinal stenosis and foraminal stenosis in the lumbar area. After evaluation by CT surgery for possible vascular disease, which was not present, the patient was discharged with instructions regarding symptomatic management, pending outpatient appointment with Neurosurgery to investigate additional options including possible surgery. The patient was discharged on acetaminophen 1000 mg p.o. q.6 hours p.r.n. pain, he was hemodynamically stable, and was complaining about improved right hip and thigh pain and numbness, but right hip pain and numbness that improved since admission. PHYSICAL EXAMINATION: VITAL SIGNS: Blood pressure 108/58, pulse 64, respiratory rate 19, oxygen saturation 96% on room air, temperature 98. GENERAL: Lying comfortably in bed, in no apparent distress, emaciated. HEENT: Normocephalic, atraumatic. PERRL. EOMI. LUNGS: Clear to auscultation bilaterally. No wheezing, rales, or rhonchi. CARDIAC: Regular rate and rhythm. No murmurs, gallops, or rubs. ABDOMEN: Soft, nontender, nondistended. Normal bowel sounds. EXTREMITIES AND BACK: No point tenderness in the back or paracervical hypertonicity. Negative straight leg test bilaterally. Strength 5/5 throughout. MEDICATION LIST: New medications: Acetaminophen 1000 mg p.o. q.6 hours p.r.n. for pain. Modified medications: No modified medications. Discontinued medications: No discontinued medications. Continued medications: Amiodarone 200 mg p.o. b.i.d., apixaban 5 mg p.o. b.i.d., aspirin, carvedilol, Lasix, lisinopril. Job ID: [id number]
== END 2020-06-06 16:45 | disposition home or self-care (01) ==
LOC: ERS 13:07 → 2NO 16:57
PROVIDERS: ADMIT Internal Medicine; ATTEND Internal Medicine
DX: M16.11 Unilateral primary osteoarthritis, right hip (principal); M48.05 Spinal stenosis, thoracolumbar region; M48.061 Spinal stenosis, lumbar region without neurogenic claudication; I25.10 Atherosclerotic heart disease of native coronary artery without angina pectoris; I48.91 Unspecified atrial fibrillation; I50.9 Heart failure, unspecified; I42.8 Other cardiomyopathies; Z79.01 Long term (current) use of anticoagulants; Z79.82 Long term (current) use of aspirin; Z79.899 Other long term (current) drug therapy; Z95.810 Presence of automatic (implantable) cardiac defibrillator
CPT/HCPCS: 36415; 70450; 71045; 72128; 72131; 80048; 80053; 82550; 82553; 84484; 85025; 93005; 93923; 94760; 96372; 96374; 96376; G0378; J1650; J2270; J2405; S0028

== ENCOUNTER 2021-01-04 10:04 | Outpatient (CLI) | payer MEDICARE ==
--- NOTE | 2021-01-04 10:20 | RAD ---
XR Chest Pa Lat STANDARD History: Heart failure Comparison: Radiograph 2019 Findings: Heart size markedly enlarged. 3-lead AICD/pacer electrode tips project over the right atria l appendage, right ventricle, and coronary sinus. Mild blunting both lateral costophrenic sulci. No pneumothorax. Mild pulmonary venous congestion. Impression: Mild decompensated congestive heart failure.
== END 2021-01-04 10:05 | disposition home or self-care (01) ==
LOC: RAD-FRANK 10:04
PROVIDERS: ATTEND Nurse Practitioner Family
DX: I50.20 Unspecified systolic (congestive) heart failure (principal)
CPT/HCPCS: 71046